=== PATIENT | female | born 1945 | race Caucasian/White ===

== ENCOUNTER 2017-10-26 14:51 | Emergency (ER) | payer MEDICARE, OTHER ==
[~2017-10-26] VITALS: Ht 157.5 cm; Wt 56.2 kg
[~2017-10-26 14:51] MED LIST: ATOR40TA PO; ATOR80TA PO; BUPR300T2 PO; ESCT10T PO; EZET10TA5 PO; FLC1T PO; LANS15CA PO; LVT.15T PO; MTF500T PO; MTX2.5T PO; MUPI22OI; OXYC-12 PO; VALS1TAB48 PO
--- OUTSIDE RECORDS SUMMARY | 2017-10-26 15:00 | XMS REPORT | Continuity of Care Document ---
Author Author [facility] Organization [facility] Address Unknown Phone Unavailable Allergies There is no data. Medications There is no data. Problems There is no data. Procedures There is no data. Results There is no data. Encounters ACCT No. Visit Date/Time Discharge Status Pt. Type Provider Facility Loc./Unit Complaint [id number] 06/15/2013 13:41:00 06/15/2013 14:40:00 DIS Outpatient [id number] 10/26/2017 14:53:00 ACT Emergency FABIOLA KAPLAN DO [facility] ER FALL/R FOOT INJ
--- NOTE | 2017-10-26 15:34 | Diagnostic Imaging Report ---
Indication: Right foot injury from falling on the ice. Findings: Three views of the right foot show a small cortical avulsion fracture off the distal dorsal aspect of the talus. This fragment measures 8 mm in diameter and 3 mm in thickness. Remainder of the foot is unremarkable. Impression: Small avulsion fracture of the distal dorsal aspect of the talus. Dictated by: Dictated on workstation # [id number]
--- NOTE | 2017-10-26 15:34 | Diagnostic Imaging Report ---
Indication: Right ankle injury from slipping on ice. Findings: Three views of the right ankle show a small cortical avulsion fracture off of the dorsal distal aspect of the talus. Ankle mortise is preserved. The tibia and fibular are unremarkable. Impression: Fracture of the distal dorsal talus. Ankle otherwise unremarkable. Dictated by: Dictated on workstation # [id number]
[2017-10-26] MEDS ORDERED: TRAM-42 PO (15:43)
[2017-10-26] MEDS ORDERED: MELO-170 PO (15:43)
--- NOTE | 2017-10-26 15:43 | ED Lower Extremity ---
General Chief Complaint: Lower Extremity Stated Complaint: FALL/R FOOT INJ Nursing Triage Note: PT STATES FELL DOWN A COUPLE STEPS STATES SLIPPED CO OF R ANKLE PAIN, SWELLING AND BRUISING NOTED, STATES UNABLE TO BEAR WT ON R FOOT Nursing Sepsis Screen: No Definite Risk Source: patient History of Present Illness Date Seen by Provider: Oct 26, 2017 Time Seen by Provider: 15:13 Initial Comments C/O RIGHT ANKLE / FOOT PAIN STATES SHE FELL DOWN A COUPLE OF STEPS TODAY, INJURING RIGHT FOOT/ANKLE DENIES ANY OTHER INJURIES OR PAIN NO PARESTHESIAS OR MOTOR DEFICITS STATES SHE CANNOT BEAR WEIGHT ON RIGHT FOOT PCP: [facility] Allergies and Home Medications Allergies Coded Allergies: No Known Drug Allergies (Unverified , 10/11/11) Home Medications Atorvastatin Calcium 40 Mg Tablet, 1 EACH PO HS, (Reported) Bupropion Hcl 300 Mg Tab.sr.24h, 300 MG PO HS, (Reported) Escitalopram Oxalate 10 Mg Tablet, 1 EACH PO DAILY, (Reported) Ezetimibe 10 Mg Tablet, 10 MG PO HS, (Reported) Folic Acid 1 Mg Tab, 1 EACH PO DAILY, (Reported) Hctz/Valsartan 1 Tab Tablet, 1 EACH PO DAILY, (Reported) Lansoprazole 15 Mg Capsule.dr, 15 MG PO DAILY, (Reported) Levothyroxine Sodium 150 Mcg Tablet, 75 MCG PO DAILY, (Reported) Meloxicam 7.5 Mg Tablet, 7.5 MG PO DAILY, #10 Prescribed by: FABIOLA KAPLAN on 10/26/17 1543 Metformin Hcl 500 Mg Tablet, 1 EACH PO BID WITH MEALS, (Reported) Methotrexate 2.5 Mg Tab, 2.5 MG PO Q7D, (Reported) Oxycodone Hcl/Acetaminophen 1 Each Tablet, 1-2 EACH PO Q4H PRN, (Reported) Tramadol HCl 50 Mg Tablet, 50 MG PO Q4H, #20 Prescribed by: FABIOLA KAPLAN on 10/26/17 1543 Constitutional: no symptoms reported Musculoskeletal: see HPI Skin: no symptoms reported Psychiatric/Neurological: No Symptoms Reported Past Sffwjgp-Yvhoqs-Mhcbda Hx Patient Social History Alcohol Use: Denies Use Recreational Drug Use: No Smoking Status: Current Everyday Smoker (1 1/2 PPD) Type Used: Cigarettes (1 /2 PPD) Recent Foreign Travel: No Contact w/Someone Who Travel: No Recent Infectious Disease Expo: No Recent Hopitalizations: No Physical Abuse: No Sexual Abuse: No Immunizations Up To Date Date of Pneumonia Vaccine: Jun 21, 2012 Date of Influenza Vaccine: Jun 21, 2012 Surgeries History of Surgeries: Yes (LUMBAR SPINE SURGERY--DR. 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 History: Hysterectomy, Menopausal Genitourinary History of Genitourinary Disor: No Gastrointestinal History of Gastrointestinal Di: Yes (S/P JAMEL) Gastrointestinal Disorders: Pancreatitis, Gall Bladder Disease Musculoskeletal History of Musculoskeletal Dis: Yes Musculoskeletal Disorders: Degenerate Disk Disease, Rheumatoid Arthritis, Chronic Back Pain Endocrine History of Endocrine Disorders: Yes Endocrine Disorders: Hypothyroidsim, Diabetes, Non-Insulin dep HEENT History of HEENT Disorders: No Cancer History of Cancer: No Psychosocial History of Psychiatric Problem: Yes Behavioral Health Disorders: Anxiety, Depression Suicide Risk Score: 0 Integumentary History of Skin or Integumenta: Yes (MRSA + NASAL SWAB) Blood Transfusions History of Blood Disorders: No Physical Exam Vital Signs Vital Sign - Last 12Hours 10/26/17 15:00 Temp 97.4 Pulse 64 Resp 18 B/P (MAP) 131/56 (81) Pulse Ox 98 Capillary Refill : Less Than 3 Seconds General Appearance: WD/WN, no apparent distress Hips: bilateral hip normal inspection Legs: bilateral leg normal inspection Knees: bilateral knee normal inspection Ankles: left ankle normal inspection, right ankle bone tenderness, right ankle ecchymosis, right ankle limited range of motion, right ankle pain, right ankle soft tissue tenderness, right ankle swelling, right ankle other (MODERATE SWELLING, BRUISING AND TENDERNESS TO RIGHT LATERAL MALLEOLUS, EXTENDING DOWN TO LATERAL METARARSAL AREA. 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, no motor/sensory deficits, alert, normal mood/affect, oriented x 3 Splinting and Joint Reduction : Jd wrap: Yes Immobilizers: Step Light Walker s/m/lg Progress/Results/Core Measures Results/Orders My Orders Orders - FABIOLA KAPLAN DO Foot, Right, 3 View (10/26/17 15:15) Ankle, Right, 3 Views (10/26/17 15:15) Jd Bandage (10/26/17 15:38) Steplite (10/26/17 15:38) Vital Signs/I&O Vital Sign - Last 12Hours 10/26/17 10/26/17 15:00 16:09 Temp 97.4 97.4 Pulse 64 64 Resp 18 18 B/P (MAP) 131/56 (81) Pulse Ox 98 98 Blood Pressure Mean: 81 Diagnostic Imaging Comments XRAYS RIGHT FOOT AND ANKLE--AVULSION FX OF TALUS. SOFT TISSUE SWELLING, PER RADIOLOGIST REPORT @ 1535 Reviewed: Reviewed by Me Departure Impression Impression: Primary Impression: Avulsion fracture of right talus Additional Impression: Right ankle sprain Disposition: HOME, SELF-CARE Condition: Stable Departure-Patient Inst. Referrals: NO,LOCAL PHYSICIAN (PCP) Primary Care Physician [facility] 4 STATES Patient Instructions: Ankle Fracture (DC), Ankle Sprain (DC) Add. Discharge Instructions: JD WRAP AND WALKING BOOT AT ALL TIMES ICE TO AREA AT 20 MINUTE INTERVALS, AND ELEVATE FOOT MUCH POSSIBLE FOLLOW UP WITH [facility] 4 STATES IN 5-7 DAYS FOR FURTHER CARE--CALL TODAY FOR APPOINTMENT All discharge instructions reviewed with patient and/or family. Voiced understanding. Scripts Tramadol HCl (Ultram) 50 Mg Tablet 50 MG PO Q4H, #20 TAB Prov: FABIOLA KAPLAN DO 10/26/17 Meloxicam (Mobic) 7.5 Mg Tablet 7.5 MG PO DAILY, #10 TAB Prov: FABIOLA KAPLAN DO 10/26/17 FABIOLA KAPLAN DO Oct 26, 2017 15:43
[2017-10-26 16:09] VITALS: BP 131/56
== END 2017-10-26 16:27 | disposition home or self-care (01) ==
LOC: EDUNIT# 14:51 → ER 14:53
DX: S92.151A Displaced avulsion fracture (chip fracture) of right talus, initial encounter for closed fracture (principal); F41.9 Anxiety disorder, unspecified; F32.9 Major depressive disorder, single episode, unspecified; G47.30 Sleep apnea, unspecified; E03.9 Hypothyroidism, unspecified; E11.9 Type 2 diabetes mellitus without complications; E78.00 Pure hypercholesterolemia, unspecified; I10 Essential (primary) hypertension; F17.210 Nicotine dependence, cigarettes, uncomplicated; Z87.19 Personal history of other diseases of the digestive system; Z90.49 Acquired absence of other specified parts of digestive tract; Z90.710 Acquired absence of both cervix and uterus; Z79.84 Long term (current) use of oral hypoglycemic drugs; W10.9XXA Fall (on) (from) unspecified stairs and steps, initial encounter
CPT/HCPCS: 73610; 73630; 99283

== ENCOUNTER 2018-02-08 20:48 | Emergency (ER) | payer MEDICARE, OTHER ==
[~2018-02-08] VITALS: Ht 157.5 cm; Wt 56.2 kg
[~2018-02-08 20:48] MED LIST changes: +MELO-170 PO; +TRAM-42 PO
--- NOTE | 2018-02-08 21:29 | Diagnostic Imaging Report ---
INDICATION: Left knee pain COMPARISON: None FINDINGS: Three views of the left knee demonstrate minimal tricompartment degenerative joint disease. There is a small suprapatellar joint effusion. There is no fracture or dislocation. IMPRESSION: Degenerative joint disease without fracture. Dictated by: Dictated on workstation # [id number]
--- NOTE | 2018-02-08 21:30 | Diagnostic Imaging Report ---
INDICATION: Left tibia-fibula injury, pain COMPARISON: None FINDINGS: Multiple views of the left tibia and fibula demonstrate a tiny chronic appearing chip fracture off of the medial malleolus but otherwise, no obvious acute fracture seen. Articular surfaces are normal. IMPRESSION: No obvious acute fracture or dislocation Dictated by: Dictated on workstation # [id number]
--- NOTE | 2018-02-08 21:41 | ED Lower Extremity ---
General Chief Complaint: Lower Extremity Stated Complaint: LEFT KNEE PAIN Nursing Triage Note: c/o L knee pain after feeling a pop earlier. patient denies taking medication for pain and is unable to to bear weight on leg Nursing Sepsis Screen: No Definite Risk Source: patient Exam Limitations: no limitations History of Present Illness Date Seen by Provider: February 08, 2018 Time Seen by Provider: 20:59 Initial Comments PT ARRIVES VIA POV FROM HOME STATES SHE WAS WALKING OUT THE DOOR AND HER LEFT KNEE POPPED WHEN SHE STEPPED DOWN ON IT. STATES SHE DID NOT TWIST HER KNEE AND DID NOT FALL DOWN OCCURRED TONIGHT AROUND 1800 STATES SHE HAS NOT BEEN ABLE TO BEAR WEIGHT ON THIS LEG SINCE IT HAPPENED STATES SHE HAS SHARP SHOOTING PAINS IN HER KNEE, MOSTLY THE LATERAL ASPECT AND HAS OCCASIONAL SLIGHT TINGLING IN HER TOES. HAS NOT TAKEN ANYTHING FOR PAIN, OR PUT ICE ON IT --PT STATES SHE HAS BOTH HYDROCODONE AND PRESCRIPTION STRENGTH IBUPROFEN AT HOME. PT ALSO STATES SHE HAS A WALKER AT HOME BUT HAS NOT USED IT NO PRIOR PROBLEMS WITH THIS KNEE, BUT HAS HAD RIGHT KNEE SURGERY BY DR. GUERRA AND BACK SURGERY BY DR. RED AT [facility] 4 STATES PCP: KADEEM PENG Allergies and Home Medications Allergies Coded Allergies: No Known Drug Allergies (Unverified , 10/11/11) Home Medications Atorvastatin Calcium 40 Mg Tablet, 1 EACH PO HS, (Reported) Bupropion Hcl 300 Mg Tab.sr.24h, 300 MG PO HS, (Reported) Escitalopram Oxalate 10 Mg Tablet, 1 EACH PO DAILY, (Reported) Ezetimibe 10 Mg Tablet, 10 MG PO HS, (Reported) Folic Acid 1 Mg Tab, 1 EACH PO DAILY, (Reported) Hctz/Valsartan 1 Tab Tablet, 1 EACH PO DAILY, (Reported) Lansoprazole 15 Mg Capsule.dr, 15 MG PO DAILY, (Reported) Levothyroxine Sodium 150 Mcg Tablet, 75 MCG PO DAILY, (Reported) Meloxicam 7.5 Mg Tablet, 7.5 MG PO DAILY Prescribed by: FABIOLA KAPLAN on 10/26/17 1543 Metformin Hcl 500 Mg Tablet, 1 EACH PO BID WITH MEALS, (Reported) Methotrexate 2.5 Mg Tab, 2.5 MG PO Q7D, (Reported) Oxycodone Hcl/Acetaminophen 1 Each Tablet, 1-2 EACH PO Q4H PRN, (Reported) Tramadol HCl 50 Mg Tablet, 50 MG PO Q4H Prescribed by: FABIOLA KAPLAN on 10/26/17 1543 Patient Home Medication List Home Medication List Reviewed: Yes Constitutional: no symptoms reported Musculoskeletal: see HPI Skin: no symptoms reported Psychiatric/Neurological: See HPI Past Mpeumgl-Pubeza-Oxvhmr Hx Patient Social History Alcohol Use: Denies Use Recreational Drug Use: No Smoking Status: Current Everyday Smoker Type Used: Cigarettes Recent Foreign Travel: No Contact w/Someone Who Travel: No Recent Infectious Disease Expo: No Recent Hopitalizations: No Physical Abuse: No Sexual Abuse: No Immunizations Up To Date Date of Pneumonia Vaccine: Jun 21, 2012 Date of Influenza Vaccine: Jun 21, 2012 Past Medical History Surgeries: Yes (LUMBAR SPINE SURGERY--DR. RED / [facility] 4 STATES; RIGHT KNEE SURGERY--DR. 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 Genitourinary: No Gastrointestinal: Yes (S/P JAMEL) Pancreatitis, Gall Bladder Disease Musculoskeletal: Yes (S/P RIGHT KNEE SURGERY AND BACK SURGERY) Degenerate Disk Disease, Rheumatoid Arthritis, Chronic Back Pain Endocrine: Yes Hypothyroidsim, Diabetes, Non-Insulin dep HEENT: No Cancer: No Psychosocial: Yes Anxiety, Depression Nursing Suicide Risk Score: 0 Integumentary: Yes (MRSA + NASAL SWAB) Blood Disorders: No Physical Exam Vital Signs Vital Signs - First Documented 02/08/18 02/08/18 20:52 21:57 Temp 98.2 Pulse 73 Resp 18 B/P (MAP) 143/67 (92) Pulse Ox 95 O2 Delivery Room Air Capillary Refill : Less Than 3 Seconds General Appearance: WD/WN, no apparent distress, thin Hips: bilateral hip non-tender, bilateral hip normal inspection, bilateral hip normal range of motion, bilateral hip no evidence of injury Legs: bilateral leg non-tender, bilateral leg normal inspection, bilateral leg normal range of motion, bilateral leg no evidence of injury Knees: right knee normal inspection; left knee bone tenderness, left knee pain , left knee other (LIMITED ROM, VERY SLIGHT SWELLING TO KNEE, NO GROSS LIGAMENT LAXITY, BUT EXAM IS VERY LIMITED DUE TO PAIN. NO BRUISING. DISTAL MOTOR/SENSORY/ VASCULAR INTACT. 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, no motor/sensory deficits, alert, normal mood/affect, oriented x 3 Skin: normal color, warm/dry Procedures/Interventions Splinting and Joint Reduction : Jd wrap: Yes Immobilizers: 19 inch Knee Ordered: Other (HAS WALKER AT HOME) Progress/Results/Core Measures Results/Orders My Orders Orders - FABIOLA KAPLAN DO Tibia/Fibula, Left, 2 Views (02/08/18 21:03) Knee, Left, 3 Views (02/08/18 21:03) Jd Bandage (02/08/18 21:31) Knee Immobilizer (02/08/18 21:31) Ketorolac Injection (Toradol Injection) (02/08/18 21:45) Hydrocodone/Apap 5/325 Tablet (Lortab 5 (02/08/18 21:45) Im/Sub-Q Injection Non-Ab Ed (02/08/18 ) Vital Signs/I&O 02/08/18 02/08/18 20:52 21:57 Temp 98.2 98.2 Pulse 73 71 Resp 18 18 B/P (MAP) 143/67 (92) 137/63 (92) Pulse Ox 95 96 O2 Delivery Room Air Blood Pressure Mean: 92 Diagnostic Imaging Comments XRAYS RIGHT KNEE--NO ACUTE PROCESS, PER RADIOLOGIST REPORT @ 2131 Reviewed: Reviewed by Me Departure Impression Primary Impression: Left knee sprain Disposition: HOME, SELF-CARE Condition: Stable Departure-Patient Inst. Referrals: FRANCESCO GUERRA MD NO,LOCAL PHYSICIAN (PCP) Primary Care Physician Patient Instructions: How to Use an Elastic Bandage, Knee Immobilizer (DC), Knee Sprain (DC) Add. Discharge Instructions: JD WRAP, KNEE IMMOBILIZER AND WALKER AT ALL TIMES ICE TO AREA AT 20 MINUTE INTERVALS ELEVATE LEG MUCH POSSIBLE TAKE YOUR IBUPROFEN AND HYDROCODONE NEEDED FOR PAIN FOLLOW UP WITH DR. GUERRA IN 3-5 DAYS FOR FURTHER CARE All discharge instructions reviewed with patient and/or family. Voiced understanding. FABIOLA KAPLAN DO February 08, 2018 21:41
[2018-02-08] MEDS ORDERED: KETOROLAC 60 MG/2 ML VIAL IM ONE (21:45)
[2018-02-08] MEDS ORDERED: HYDROcodone/APAP 5 MG/325 MG (LORTAB) TAB PO ONE (21:45)
[2018-02-08 21:57] VITALS: BP 137/63
--- OUTSIDE RECORDS SUMMARY | 2018-02-09 09:49 | XMS REPORT | Continuity of Care Document ---
Author Author [facility] Organization [facility] Address Unknown Phone Unavailable Allergies Active Description Code Type Severity Reaction Onset Reported/Identified Relationship to Patient Clinical Status Yes PAXIL MODERATE OTHER Yes No Known Drug Allergies [id number] Drug Allergy Unknown N/A 10/11/2011 Medications There is no data. Problems Date Dx Coded Attending Type Code Diagnosis Diagnosed By 10/26/2017 FABIOLA KAPLAN DO, Ot E03.9 HYPOTHYROIDISM, UNSPECIFIED 10/26/2017 FABIOLA KAPLAN DO Ot E11.9 TYPE 2 DIABETES MELLITUS WITHOUT COMPLIC 10/26/2017 FABIOLA KAPLAN DO Ot E78.00 PURE HYPERCHOLESTEROLEMIA, UNSPECIFIED 10/26/2017 FABIOLA KAPLAN DO Ot F17.210 NICOTINE DEPENDENCE, CIGARETTES, UNCOMPL 10/26/2017 FABIOLA KAPLAN DO Ot F32.9 MAJOR DEPRESSIVE DISORDER, SINGLE EPISOD 10/26/2017 FABIOLA KAPLAN DO Ot F41.9 ANXIETY DISORDER, UNSPECIFIED 10/26/2017 FABIOLA KAPLAN DO Ot G47.30 SLEEP APNEA, UNSPECIFIED 10/26/2017 SEKOU KAPLAN DOA K Ot I10 ESSENTIAL (PRIMARY) HYPERTENSION 10/26/2017 FABIOLA KAPLAN DO Ot M25.571 PAIN IN RIGHT ANKLE AND JOINTS OF RIGHT 10/26/2017 FABIOLA KAPLAN DO Ot S92.151A DISPL AVULSION FRACTURE (CHIP FRACTURE) 10/26/2017 FABIOLA KAPLAN DO Ot W10.9XXA FALL (ON) (FROM) UNSPECIFIED STAIRS AND 10/26/2017 FABIOLA KAPLAN DO Ot Z79.84 [facility] (CURRENT) USE OF ORAL HYPOGLYC 10/26/2017 FABIOLA KAPLAN DO Ot Z87.19 PERSONAL HISTORY OF OTHER DISEASES OF TH 10/26/2017 FABIOLA KAPLAN DO Ot Z90.49 ACQUIRED ABSENCE OF OTHER SPECIFIED PART 10/26/2017 FABIOLA KAPLAN DO Ot Z90.710 ACQUIRED ABSENCE OF BOTH CERVIX AND UTER 10/28/2017 [facility] FABIOLA Malhotra Ot E03.9 HYPOTHYROIDISM, UNSPECIFIED 10/28/2017 [facility] FABIOLA Malhotra Ot E11.9 TYPE 2 DIABETES MELLITUS WITHOUT COMPLIC 10/28/2017 [facility] FABIOLA Malhotra Ot E78.00 PURE HYPERCHOLESTEROLEMIA, UNSPECIFIED 10/28/2017 [facility] FABIOLA Malhotra Ot F17.210 NICOTINE DEPENDENCE, CIGARETTES, UNCOMPL 10/28/2017 [facility] FABIOLA Malhotra Ot F32.9 MAJOR DEPRESSIVE DISORDER, SINGLE EPISOD 10/28/2017 [facility] FABIOLA Malhotra Ot F41.9 ANXIETY DISORDER, UNSPECIFIED 10/28/2017 [facility] FABIOLA Malhotra Ot G47.30 SLEEP APNEA, UNSPECIFIED 10/28/2017 EUSE[facility] DO FABIOLA Malhotra Ot I10 ESSENTIAL (PRIMARY) HYPERTENSION 10/28/2017 [facility] FABIOLA Malhotra Ot M25.571 PAIN IN RIGHT ANKLE AND JOINTS OF RIGHT 10/28/2017 EUSEBIO DO FABIOLA Malhotra Ot S92.151A DISPL AVULSION FRACTURE (CHIP FRACTURE) 10/28/2017 [facility] FABIOLA Malhotra Ot W10.9XXA FALL (ON) (FROM) UNSPECIFIED STAIRS AND 10/28/2017 [facility] FABIOLA Malhotra Ot Z79.84 [facility] (CURRENT) USE OF ORAL HYPOGLYC 10/28/2017 EUSE[facility] DO FABIOLA Malhotra Ot Z87.19 PERSONAL HISTORY OF OTHER DISEASES OF TH 10/28/2017 [facility] FABIOLA Malhotra Ot Z90.49 ACQUIRED ABSENCE OF OTHER SPECIFIED PART 10/28/2017 EUSE[facility] DO FABIOLA Malhotra Ot Z90.710 ACQUIRED ABSENCE OF BOTH CERVIX AND UTER Procedures There is no data. Results Test Result Range Ferritin - 10/22/16 19:16 Ferritin 301.44 ng/mL 4.63-204.00 Thyroid Stimulating Hormone - 10/22/16 19:16 TSH 0.79 mIU/mL 0.32-5.00 Thyroid Stimulating Hormone - 08/28/17 12:50 TSH 0.42 mIU/mL 0.32-5.00 Surgical Pathology - 10/30/17 13:44 Surg Path Sent to [facility] Encounters ACCT No. Visit Date/Time Discharge Status Pt. Type Provider Facility Loc./Unit Complaint [id number] 10/26/2017 14:53:00 10/26/2017 16:27:00 DIS Emergency FABIOLA KAPLAN DO [facility] ER FALL/R FOOT INJ [id number] 06/15/2013 13:41:00 06/15/2013 14:40:00 DIS Outpatient [id number] 10/30/2017 15:44:00 10/30/2017 23:59:00 DIS Outpatient Mayo Pineda [id number] 08/28/2017 12:50:00 08/28/2017 23:59:00 DIS Outpatient Yaima Lal [id number] 10/23/2016 07:31:00 10/23/2016 07:31:00 CAN Outpatient David Manley [id number] 10/22/2016 19:13:00 10/22/2016 23:59:00 DIS Outpatient David Manley
== END 2018-02-08 21:57 | disposition home or self-care (01) ==
LOC: ER 20:48
DX: S83.92XA Sprain of unspecified site of left knee, initial encounter (principal); G47.30 Sleep apnea, unspecified; E78.00 Pure hypercholesterolemia, unspecified; I10 Essential (primary) hypertension; E03.9 Hypothyroidism, unspecified; E11.9 Type 2 diabetes mellitus without complications; F41.9 Anxiety disorder, unspecified; F32.9 Major depressive disorder, single episode, unspecified; Z90.710 Acquired absence of both cervix and uterus; Z90.49 Acquired absence of other specified parts of digestive tract; Z87.19 Personal history of other diseases of the digestive system; Z79.84 Long term (current) use of oral hypoglycemic drugs; Z98.890 Other specified postprocedural states; X50.0XXA Overexertion from strenuous movement or load, initial encounter
CPT/HCPCS: 73562; 73590; 96372

== ENCOUNTER 2019-02-18 22:32 | Observation (INO) | payer MEDICARE, OTHER ==
[~2019-02-18] VITALS: Ht 157.5 cm; Wt 65.8 kg
--- OUTSIDE RECORDS SUMMARY | 2019-02-18 22:37 | XMS REPORT | Continuity of Care Document ---
Author Author [facility] Organization [facility] Address Unknown Phone Unavailable Care Team Providers Care Medical Affairs Specialist Name Role Phone JONE HERNANDEZ MD PP Insurance Providers Payer Name Policy Number Subscriber Name Relationship [employer] Benefits [id number] Chema Corrales Self / Same As Patient Wps Medicare [id number] Chema Corrales 01 Self / Same As Patient Advance Directives Directive Response Recorded Date Advance Directives N 09/03/12 3:03pm Health Care Power of Chemical Tester N 10/12/11 12:00am Organ Donor N 10/12/11 12:00am Problems No Known Problems or Medical conditions. Family History History Response Recorded Date/Time Hx Family Cancer N 10/11/11 11:14pm Hx Family Cardiac Disorders Y 10/11/11 11:14pm Hx Family Hypertension Y 10/11/11 11:14pm Hx Family Myocardial Infarction Y 10/11/11 11:14pm Allergies, Adverse Reactions, Alerts Allergen Type Severity Reaction Last Updated No Known Drug Allergies 10/11/11 Medications Medication Dose Units Route Sig Qty Days Oxycodone Hcl/Acetaminophen (Percocet 5-325 Mg Tablet) 1 - 2 Each PO Q4H PRN Ezetimibe (Zetia) 10 Mg PO HS Atorvastatin Calcium (Lipitor 40MG) 1 Each PO HS Folic Acid (Folic Acid Tab) 1 Each PO DAILY Bupropion Hcl (Budeprion Xl) 300 Mg PO HS Escitalopram Oxalate (Lexapro) 1 Each PO DAILY Lansoprazole (Prevacid) 15 Mg PO DAILY Methotrexate 2.5 Mg PO Q7D HCTZ/Valsartan (Diovan Hct 80-12.5 Mg Tablet) 1 Each PO DAILY Levothyroxine Sodium (Levothyroxine 150 Mcg Tab) 75 Mcg PO DAILY Metformin HCl (Metformin 500 Mg) 1 Each PO BID WITH MEALS Mupirocin (Bactroban) 22 Gm NA TID Immunizations Name Given Type Date of Pneumonia Vaccine 06/21/12 H Date of Influenza Vaccine 06/21/12 H Response Recorded Date/Time Status not known Unknown Results Test Date Result Interp. Ref. Range Alanine Aminotransferase (ALT/SGPT) October 15, 2011 5:21am 284 U/L H 30-65 Albumin October 15, 2011 5:21am 2.9 G/DL L 3.4-5.0 Alkaline Phosphatase October 15, 2011 5:21am 287 U/L H 50-136 Amylase Level October 14, 2011 5:44am 43 U/L N 25-115 Aspartate Amino Transf (AST/SGOT) October 15, 2011 5:21am 242 U/L H 15-37 BUN/Creatinine Ratio October 15, 2011 5:21am 6 - Blood Urea Nitrogen October 15, 2011 5:21am 7 MG/DL N 7-18 Calcium Level October 15, 2011 5:21am 7.8 MG/DL L 8.5-10.1 Carbon Dioxide Level October 15, 2011 5:21am 27 MMOL/L N 21-32 Chloride Level October 15, 2011 5:21am 107 MMOL/L N 101-110 Creatinine October 15, 2011 5:21am 1.2 MG/DL N 0.6-1.3 Direct Bilirubin October 11, 2011 3:40pm 0.1 MG/DL N 0.0-0.30 Glucose Level October 15, 2011 5:21am 108 MG/DL H 74-106 Hematocrit October 15, 2011 5:21am 30 % L 35-52 Hemoglobin October 15, 2011 5:21am 9.8 G/DL L 11.5-16.0 Indirect Bilirubin October 11, 2011 3:40pm 0.3 MG/DL - Lipase October 15, 2011 5:21am 73 U/L N 73-393 Mean Corpuscular Hemoglobin October 15, 2011 5:21am 32 PG N 25-34 Mean Corpuscular Hemoglobin Concent October 15, 2011 5:21am 33 G/DL N 32-36 Mean Corpuscular Volume October 15, 2011 5:21am 97 FL N 80-99 Mean Platelet Volume October 15, 2011 5:21am 10.3 FL N 7.4-10.4 Platelet Count October 15, 2011 5:21am 194 10^3/uL N 130-400 Potassium Level October 15, 2011 5:21am 4.5 MMOL/L N 3.6-5.0 Red Blood Count October 15, 2011 5:21am 3.07 10^6/uL L 4.35-5.85 Red Cell Distribution Width October 15, 2011 5:21am 15.6 % H 10.0-14.5 Sodium Level October 15, 2011 5:21am 140 MMOL/L N 135-145 Total Bilirubin October 15, 2011 5:21am 0.6 MG/DL N 0.0-1.0 Total Protein October 15, 2011 5:21am 5.9 G/DL L 6.4-8.2 Urine Bacteria October 11, 2011 5:00pm TRACE - Urine Bilirubin October 11, 2011 5:00pm NEGATIVE - Urine Casts October 11, 2011 5:00pm NONE - Urine Clarity October 11, 2011 5:00pm CLEAR - Urine Color October 11, 2011 5:00pm YELLOW - Urine Crystals October 11, 2011 5:00pm NONE - Urine Culture Indicated October 11, 2011 5:00pm NO - Urine Glucose (UA) October 11, 2011 5:00pm 1+ H - Urine Ketones October 11, 2011 5:00pm NEGATIVE - Urine Leukocyte Esterase October 11, 2011 5:00pm TRACE H - Urine Mucus October 11, 2011 5:00pm NEGATIVE - Urine Nitrite October 11, 2011 5:00pm NEGATIVE - Urine Protein October 11, 2011 5:00pm NEGATIVE - Urine RBC October 11, 2011 5:00pm RARE /HPF - Urine Specific [place] October 11, 2011 5:00pm 1.015 L - Urine Squamous Epithelial Cells October 11, 2011 5:00pm 2-5 - Urine Urobilinogen October 11, 2011 5:00pm NORMAL MG/DL - Urine WBC October 11, 2011 5:00pm 0-2 /HPF - Urine pH October 11, 2011 5:00pm 6.0 - White Blood Count October 15, 2011 5:21am 7.7 10^3/uL N 4.3-11.0 Glucometer October 15, 2011 5:50am 122 MG/DL H 70-110 Estimat Glomerular Filtration Rate October 11, 2011 3:40pm 41 - Urine RBC (Auto) October 11, 2011 5:00pm NEGATIVE - Procedures Procedure Code Date LAPAROSCOPIC CHOLECYSTECTOMY 51.23 10/13/11 MRSA Screen 10/13/11 Encounters Encounter Location Date/Time Departed Emergency Room [facility] 09/03/12 2:55pm Discharged Inpatient [facility] 10/11/11 8:00pm
[2019-02-18] MEDS ORDERED: methylPREDNISolone 125 MG (Solu-MEDROL) VIAL IVP ONE (23:00)
[2019-02-18] MEDS ORDERED: FAMOTIDINE 20MG/2ML IV (PEPCID) IVP ONE (23:00)
[2019-02-18] MEDS ORDERED: EPINEPHrine INJECTION 1 MG/ML AMP IM ONE (23:00)
[2019-02-18] MEDS ORDERED: diphenhydrAMINE 50 MG/ML INJ (BENADRYL) IVP ONE (23:00)
[2019-02-18 23:41] LABS: BASOPHILS # (AUTO) 0.1 10^3/uL (0.0-0.1); BASOPHILS % (AUTO) 1 % (0-10); EOSINOPHILS # (AUTO) 0.4 10^3/uL (0.0-0.3); EOSINOPHILS % (AUTO) 3 % (0-10); HEMATOCRIT 32 % (35-52); HEMOGLOBIN 10.6 G/DL (11.5-16.0); LYMPHOCYTES # (AUTO) 2.3 X 10^3 (1.0-4.0); LYMPHOCYTES % (AUTO) 17 % (12-44); MEAN CORPUSCULAR HEMOGLOBIN 27 PG (25-34); MEAN CORPUSCULAR HGB CONC 33 G/DL (32-36); MEAN CORPUSCULAR VOLUME 82 FL (80-99); MEAN PLATELET VOLUME 11.2 FL (7.4-10.4); MONOCYTES # (AUTO) 0.7 X 10^3 (0.0-1.0); MONOCYTES % (AUTO) 6 % (0-12); NEUTROPHILS # (AUTO) 9.6 X 10^3 (1.8-7.8); NEUTROPHILS % (AUTO) 73 % (42-75); PLATELET COUNT 338 10^3/uL (130-400); RED CELL DISTRIBUTION WIDTH 17.7 % (10.0-14.5); WHITE BLOOD COUNT 13.1 10^3/uL (4.3-11.0)
[2019-02-18 23:59] LABS: ALBUMIN 4.2 GM/DL (3.2-4.5); BILIRUBIN,TOTAL 0.2 MG/DL (0.1-1.0); CALCIUM 9.7 MG/DL (8.5-10.1); CREATININE SERUM 2.15 MG/DL (0.60-1.30); POTASSIUM 4.2 MMOL/L (3.6-5.0); TOTAL PROTEIN 7.6 GM/DL (6.4-8.2)
[2019-02-19] VITALS (13 sets, daily range): BP systolic 99–133; BP diastolic 48–74
[2019-02-19] MEDS ORDERED: methylPREDNISolone 125 MG (Solu-MEDROL) VIAL IVP ONE (00:45)
[2019-02-19] MEDS ORDERED: diphenhydrAMINE 50 MG/ML INJ (BENADRYL) IVP ONE (00:45)
[2019-02-19] MEDS ORDERED: FAMOTIDINE 20MG/2ML IV (PEPCID) IVP ONE (00:45)
[2019-02-19] MEDS ORDERED: EPINEPHrine INJECTION 1 MG/ML AMP IM ONE (00:45)
[2019-02-19] MEDS ORDERED: EPINEPHrine INJECTION 1 MG/ML AMP IM PRN (05:00)
[2019-02-19] MEDS ORDERED: 1/2 NS IV SOLUTION 1,000 ML IV SCH (05:00)
[2019-02-19] MEDS: methylPREDNISolone 125 MG (Solu-MEDROL) VIAL IVP SCH ×2 (05:05→13:50)
[2019-02-19] MEDS: diphenhydrAMINE 50 MG/ML INJ (BENADRYL) IV SCH ×3 (05:06→13:50)
[2019-02-19] MEDS ORDERED: inSUlin ASPART (NovoLOG) 1 UNIT/0.01 ML (CHARGE PER UNIT) SC SCH (06:00)
--- NOTE | 2019-02-19 06:37 | ED EENT ---
History of Present Illness General Chief Complaint: Oral/Throat Problems Stated Complaint: ANGIOEDEMA OF TONGUE;ANGEL INHIBITOR USE Nursing Triage Note: Patient advises that she began experiencing the right side of her tongue swelling at approximately [id number]. She states that she took two benadryl at approximately 2100 without improvement. Source: patient History of Present Illness Date Seen by Provider: February 18, 2019 Time Seen by Provider: 22:52 Initial Comments PT ARRIVES VIA POV FROM HOME-DROVE SELF HERE PT STATES SHE BEGAN TO HAVE SWELLING OF MOSTLY THE RIGHT SIDE OF HER TONGUE AROUND 1830 TONIGHT SWELLING HAS PROGRESSED AND IS HAVING DIFFICULTY SWALLOWING LIQUIDS, INCLUDING SALIVA, AND HAVING DIFFICULTY TALKING NO DIFFICULTY BREATHING NO SWELLING ANYWHERE ELSE NO RASH OR ITCHING ANYWHERE PT HAD A SLIGHT SORE THROAT THIS AM NO FEVER NO KNOWN INJURY TO TONGUE OR MOUTH. NO RECENT ILLNESS, ETC. 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 PCP: KADEEM PENG Allergies and Home Medications Allergies Coded Allergies: No Known Drug Allergies (Unverified , 02/18/19) Home Medications Atorvastatin Calcium 40 Mg Tablet, 1 EACH PO HS, (Reported) Bupropion Hcl 300 Mg Tab.sr.24h, 300 MG PO HS, (Reported) Escitalopram Oxalate 10 Mg Tablet, 1 EACH PO DAILY, (Reported) Ezetimibe 10 Mg Tablet, 10 MG PO HS, (Reported) Folic Acid 1 Mg Tab, 1 EACH PO DAILY, (Reported) Hctz/Valsartan 1 Tab Tablet, 1 EACH PO DAILY, (Reported) Lansoprazole 15 Mg Capsule.dr, 15 MG PO DAILY, (Reported) Levothyroxine Sodium 150 Mcg Tablet, 75 MCG PO DAILY, (Reported) Meloxicam 7.5 Mg Tablet, 7.5 MG PO DAILY Prescribed by: FABIOLA KAPLAN on 10/26/17 1543 Metformin Hcl 500 Mg Tablet, 1 EACH PO BID WITH MEALS, (Reported) Methotrexate 2.5 Mg Tab, 2.5 MG PO Q7D, (Reported) Oxycodone Hcl/Acetaminophen 1 Each Tablet, 1-2 EACH PO Q4H PRN, (Reported) Tramadol HCl 50 Mg Tablet, 50 MG PO Q4H Prescribed by: FABIOLA KAPLAN on 10/26/17 1522 Patient Home Medication List Home Medication List Reviewed: Yes Review of Systems Review of Systems Constitutional: no symptoms reported; No chills, No diaphoresis, No fever Eyes: No Symptoms Reported Ears: No Symptoms Reported Nose: no symptoms reported Mouth: see HPI Throat: see HPI Respiratory: no symptoms reported; No cough, No short of breath, No wheezing Cardiovascular: no symptoms reported Gastrointestinal: no symptoms reported : No Musculoskeletal: no symptoms reported Skin: no symptoms reported Neurological: No Symptoms Reported Hematologic/Lymphatic: No Symptoms Reported Immunological/Allergic: no symptoms reported Past Hudxjmf-Kncudn-Mwmhjn Hx Patient Social History Alcohol Use: Rarely Uses Recreational Drug Use: No Smoking Status: Current Everyday Smoker (1 PPD) Type Used: Cigarettes (1 PPD) Recent Foreign Travel: No Contact w/Someone Who Travel: No Recent Infectious Disease Expo: No Recent Hopitalizations: No Immunizations Up To Date Date of Pneumonia Vaccine: Jun 21, 2012 Date of Influenza Vaccine: Jun 21, 2012 Past Medical History Surgeries: Yes (HYST/OVARIES INTACT; BACK SURGERY) Appendectomy, Gallbladder, Hysterectomy, Orthopedic Respiratory: Yes (CPAP AT HS) Sleep Apnea Cardiac: Yes High Cholesterol, Hypertension Neurological: No 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, 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 Genitourinary: Yes (NOT ON DIALYSIS AT THIS TIME 02/18/19) Renal Failure Gastrointestinal: Yes (S/P JAMEL) Gastroesophageal Reflux, Pancreatitis, Gall Bladder Disease Musculoskeletal: Yes (S/P RIGHT KNEE SURGERY AND BACK SURGERY) Degenerate Disk Disease, Rheumatoid Arthritis, Chronic Back Pain Endocrine: Yes Hypothyroidsim, Diabetes, Non-Insulin dep HEENT: No Cancer: No Psychosocial: Yes Anxiety, Depression Integumentary: Yes (MRSA + NASAL SWAB) Blood Disorders: No Physical Exam Vital Signs Vital Signs - First Documented 02/18/19 22:56 Temp 97.9 Pulse 70 Resp 14 B/P (MAP) 131/62 (85) Pulse Ox 98 O2 Delivery Room Air Height, Weight, BMI Height: 5'2.00" Weight: 145lbs. 0.0oz. 65.863064ld; 26.5 BMI Method:Stated General Appearance: WD/WN, no apparent distress, other (MUCH DIFFICULTY TALKING DUE TO SWELLING OF TONGUE, AND SOME DIFFICULTY SWALLOWING SALIVA. SPEECH VERY DIFFICULT TO UNDERSTAND ) Mouth/Throat: No excessive drooling; tongue swollen, voice changes, other (MARKED EDEMA TO TONGUE--MOSTLY RIGHT SIDE OF TONGUE--TONGUE TOUCHES ROOF OF MOUTH AND PT IS UNABLE TO CLOSE HER MOUTH DUE TO SWELLING--PT CAN CLOSE HER LIPS, BUT CANNOT ACTUALLY CLOSE MOUTH FULLY, VOICE VERY MUFFLED) Neck: non-tender, supple, normal inspection Cardiovascular: regular rate, rhythm, no murmur Respiratory: normal breath sounds Neurologic/Psychiatric: duster tender II-XII nml as tested, no motor/sensory deficits, alert, normal mood/affect, oriented x 3 Skin: normal color, warm/dry; No rash Progress/Results/Core Measures Results/Orders Lab Results Laboratory Tests Test 02/18/19 23:15 Range/Units White Blood Count 13.1 H 4.3-11.0 10^3/uL Red Blood Count 3.95 L 4.35-5.85 10^6/uL Hemoglobin 10.6 L 11.5-16.0 G/DL Hematocrit 32 L 35-52 % Mean Corpuscular Volume 82 80-99 FL Mean Corpuscular Hemoglobin 27 25-34 PG Mean Corpuscular Hemoglobin Concent 33 32-36 G/DL Red Cell Distribution Width 17.7 H 10.0-14.5 % Platelet Count 338 130-400 10^3/uL Mean Platelet Volume 11.2 H 7.4-10.4 FL Neutrophils (%) (Auto) 73 42-75 % Lymphocytes (%) (Auto) 17 12-44 % Monocytes (%) (Auto) 6 0-12 % Eosinophils (%) (Auto) 3 0-10 % Basophils (%) (Auto) 1 0-10 % Neutrophils # (Auto) 9.6 H 1.8-7.8 X 10^3 Lymphocytes # (Auto) 2.3 1.0-4.0 X 10^3 Monocytes # (Auto) 0.7 0.0-1.0 X 10^3 Eosinophils # (Auto) 0.4 H 0.0-0.3 10^3/uL Basophils # (Auto) 0.1 0.0-0.1 10^3/uL Sodium Level 140 135-145 MMOL/L Potassium Level 4.2 3.6-5.0 MMOL/L Chloride Level 106 98-107 MMOL/L Carbon Dioxide Level 20 L 21-32 MMOL/L Anion Gap 14 5-14 MMOL/L Blood Urea Nitrogen 28 H 7-18 MG/DL Creatinine 2.15 H 0.60-1.30 MG/DL Estimat Glomerular Filtration Rate 22 BUN/Creatinine Ratio 13 Glucose Level 129 H 70-105 MG/DL Calcium Level 9.7 8.5-10.1 MG/DL Corrected Calcium 9.5 8.5-10.1 MG/DL Total Bilirubin 0.2 0.1-1.0 MG/DL Aspartate Amino Transf (AST/SGOT) 17 5-34 U/L Alanine Aminotransferase (ALT/SGPT) 13 0-55 U/L Alkaline Phosphatase 168 H 40-136 U/L Total Protein 7.6 6.4-8.2 GM/DL Albumin 4.2 3.2-4.5 GM/DL My Orders Orders - FABIOLA KAPLAN DO Ed Iv/Invasive Line Start (02/18/19 22:59) Monitor-Rhythm Ecg Trace Only (02/18/19 22:59) Cbc With Automated Diff (02/18/19 22:59) Comprehensive Metabolic Panel (02/18/19 22:59) Diphenhydramine Injection (Benadryl Inje (02/18/19 23:00) Methylprednisolone Sod Succ (Solu-Medrol (02/18/19 23:00) Famotidine Injection (Pepcid Injection) (02/18/19 23:00) Epinephrine 1 Mg Injection (Adrenalin I (02/18/19 23:00) Diphenhydramine Injection (Benadryl Inje (02/19/19 00:45) Methylprednisolone Sod Succ (Solu-Medrol (02/19/19 00:45) Famotidine Injection (Pepcid Injection) (02/19/19 00:45) Epinephrine 1 Mg Injection (Adrenalin I (02/19/19 00:45) Medications Given in ED Current Medications Medications Dose Ordered Sig/Love Route Start Time Stop Time Status Last Admin Dose Admin Diphenhydramine HCl 25 mg ONCE ONCE IVP 02/19/19 00:45 02/19/19 00:46 DC 02/19/19 01:35 25 MG Diphenhydramine HCl 50 mg ONCE ONCE IVP 02/18/19 23:00 02/18/19 23:02 DC 02/18/19 23:15 50 MG Epinephrine HCl 0.3 mg ONCE ONCE IM 02/18/19 23:00 02/18/19 23:02 DC 02/18/19 23:16 0.3 MG Epinephrine HCl 0.3 mg ONCE ONCE IM 02/19/19 00:45 02/19/19 00:46 DC 02/19/19 01:36 0.3 MG Famotidine 40 mg ONCE ONCE IVP 02/18/19 23:00 02/18/19 23:02 DC 02/18/19 23:15 40 MG Famotidine 40 mg ONCE ONCE IVP 02/19/19 00:45 02/19/19 00:46 DC 02/19/19 01:35 40 MG Methylprednisolone Sodium Succinate 125 mg ONCE ONCE IVP 02/18/19 23:00 02/18/19 23:02 DC 02/18/19 23:15 125 MG Methylprednisolone Sodium Succinate 125 mg ONCE ONCE IVP 02/19/19 00:45 02/19/19 00:46 DC 02/19/19 01:35 125 MG Vital Signs/I&O 02/18/19 02/19/19 02/19/19 02/19/19 22:56 04:04 04:45 04:46 Temp 97.9 97.8 Pulse 70 78 75 Resp 14 14 B/P (MAP) 131/62 (85) 138/64 (88) Pulse Ox 98 98 O2 Delivery Room Air Room Air Room Air 02/19/19 02/19/19 02/19/19 02/19/19 05:00 05:00 05:15 05:30 Pulse 75 74 75 Resp 15 12 12 B/P (MAP) 119/48 (71) 116/52 (73) 113/51 (71) Pulse Ox 92 97 92 92 O2 Delivery Room Air Room Air Room Air 02/19/19 02/19/19 02/19/19 05:45 06:00 06:30 Pulse 75 73 73 Resp 12 12 13 B/P (MAP) 118/53 (74) 112/62 (79) 107/56 (73) Pulse Ox 90 91 93 O2 Delivery Room Air Room Air Room Air Blood Pressure Mean: 73 Progress Progress Note : Progress Note PT GIVEN SOLUMEDROL, BENADRYL, PEPCID, AND EPINEPHRINE X 2 EACH, WITH ONLY SLIGHT DECREASE IN SWELLING, AFTER A FEW HOURS OF OBSERVATION IN ER. O2 SATS REMAIN IN UPPER 90'S ON ROOM AIR. NO DETERIORATION IN PT'S CONDITION DURING ER STAY Departure Communication (Admissions) 217--CALLED DR. MORROW, HOSPITALIST. MESSAGE LEFT ON HOME PHONE [phone]--CALLED DR. MORROW, MESSAGE LEFT [phone]--CALLED DR. MORROW. MESSAGE LEFT. ALSO CALLED CELL PHONE, NO ANSWER AND UNABLE TO LEAVE MESSAGE [phone]--CALLED DR. MORROW, MESSAGE LEFT [phone]--CALLED DR. MORROW, MESSAGE LEFT. NO ANSWER ON CELL PHONE. [phone]--CALLED SHAGGER. SHE WILL ATTEMPT TO CONTACT DR. MORROW. [phone]--DR. MENDEZ CALLED. ACCEPTS PT FOR ADMIT. Impression Primary Impression: ANGIOEDEMA OF TONGUE Additional Impression: ANGEL INHIBITOR USE Disposition: ADMITTED INPATIENT Condition: Stable Admissions Decision to Admit Reason: Admit from ER (General) Decision to Admit/Date: Feb 19, 2019 Time/Decision to Admit Time: 03:25 Departure-Patient Inst. Referrals: NO,LOCAL PHYSICIAN (PCP) Primary Care Physician FABIOLA KAPLAN DO Feb 19, 2019 06:37
--- NOTE | 2019-02-19 06:51 | Pulmonary Consultation ---
History of Present Illness History of Present Illness Date of Consultation 02/19/19 06:45 Time Seen by Provider: 06:46 Date of Admission History of Present Illness 73yo presented to ED secondary to new onset tongue swelling and dysphagia that started around 1830. She took Benadryl without any improvement. No prior episodes like this in the past. No f/ns/c, and no SOB. I am consulted for pulmonary/cc management. Allergies and Home Medications Allergies Coded Allergies: No Known Drug Allergies (Unverified , 02/18/19) Home Medications Atorvastatin Calcium 40 Mg Tablet, 1 EACH PO HS, (Reported) Bupropion Hcl 300 Mg Tab.sr.24h, 300 MG PO HS, (Reported) Escitalopram Oxalate 10 Mg Tablet, 1 EACH PO DAILY, (Reported) Ezetimibe 10 Mg Tablet, 10 MG PO HS, (Reported) Folic Acid 1 Mg Tab, 1 EACH PO DAILY, (Reported) Hctz/Valsartan 1 Tab Tablet, 1 EACH PO DAILY, (Reported) Lansoprazole 15 Mg Capsule.dr, 15 MG PO DAILY, (Reported) Levothyroxine Sodium 150 Mcg Tablet, 75 MCG PO DAILY, (Reported) Meloxicam 7.5 Mg Tablet, 7.5 MG PO DAILY Prescribed by: FABIOLA KAPLAN on 10/26/17 1547 Metformin Hcl 500 Mg Tablet, 1 EACH PO BID WITH MEALS, (Reported) Methotrexate 2.5 Mg Tab, 2.5 MG PO Q7D, (Reported) Oxycodone Hcl/Acetaminophen 1 Each Tablet, 1-2 EACH PO Q4H PRN, (Reported) Tramadol HCl 50 Mg Tablet, 50 MG PO Q4H Prescribed by: FABIOLA KAPLAN on 10/26/17 1543 Past Xroutlt-Uhirrj-Njqccv Hx Patient Social History Alcohol Use: Rarely Uses Recreational Drug Use: No Smoking Status: Current Everyday Smoker (1 PPD) Type Used: Cigarettes (1 PPD) Recent Foreign Travel: No Contact w/Someone Who Travel: No Recent Infectious Disease Expo: No Recent Hopitalizations: No Immunizations Up To Date Date of Pneumonia Vaccine: Jun 21, 2012 Date of Influenza Vaccine: Jun 21, 2012 Past Medical History Surgeries: Yes (HYST/OVARIES INTACT; BACK SURGERY) Appendectomy, Gallbladder, Hysterectomy, Orthopedic Respiratory: Yes (CPAP AT HS) Sleep Apnea Cardiac: Yes High Cholesterol, Hypertension Neurological: No 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, 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 0.0oz. 65.617257lj; 26.5 BMI Method:Stated Exam Exam Vital Signs Date Time Temp Pulse Resp B/P (MAP) Pulse Ox O2 Delivery O2 Flow Rate FiO2 02/19/19 06:30 73 13 107/56 (73) 93 Room Air 02/19/19 06:00 73 12 112/62 (79) 91 Room Air 02/19/19 05:45 75 12 118/53 (74) 90 Room Air 02/19/19 05:30 75 12 113/51 (71) 92 Room Air 02/19/19 05:15 74 12 116/52 (73) 92 Room Air 02/19/19 05:00 97 02/19/19 05:00 75 15 119/48 (71) 92 Room Air 02/19/19 04:46 75 02/19/19 04:45 97.8 Room Air 02/19/19 04:04 78 14 138/64 (88) 98 Room Air 02/18/19 22:56 97.9 70 14 131/62 (85) 98 Room Air I & O 02/19/19 07:00 Intake Total 0 ml Output Total 0 ml Balance 0 ml Height & Weight Height: 5'2.00" Weight: 145lbs. 0.0oz. 65.834851xb; 26.5 BMI Method:Stated General Appearance: No Apparent Distress, Thin HEENT: Other (swollan tongue ) Neck: Full Range of Motion, Normal Inspection, Non Tender, Supple Respiratory: Lungs Clear, Normal Breath Sounds, No Accessory Muscle Use, No Respiratory Distress Cardiovascular: Regular Rate, Rhythm, No Edema, No Gallop, No Murmur Capillary Refill: Less Than 3 Seconds Gastrointestinal: normal bowel sounds, non tender, soft, no organomegaly, no pu lsatile mass Extremity: Normal Capillary Refill, No Pedal Edema Neurologic/Psychiatric: Alert, Oriented x3 Skin: Normal Color, Warm/Dry Results Lab Laboratory Tests 02/18/19 23:15 Assessment/Plan Assessment/Plan Acute angioedema secondary to ANGEL -D/C linsiopril -Monitor in ICU for now -Solumedrol, Benadryl, and Pepcid HTN -Monitor Acute on chronic renal failure -Change IVF to NS at 100cc/hr Anemia -Monitor JOHNY ALONZO DO Feb 19, 2019 06:51
[2019-02-19] MEDS ORDERED: NS IV 1000 ML 1,000 ML IV SCH (07:00)
[2019-02-19] MEDS ORDERED: FAMOTIDINE 20MG/2ML IV (PEPCID) IVP SCH (09:00)
--- NOTE | 2019-02-19 11:51 | Short Stay Summary-Hospitalist ---
History of Present Illness HPI/Chief Complaint CC: Angioedema compromising airway HPI: This is a 73yoWF clinic patient of Yaima Lal who has h/o HTN and current smoking who presented to the ER w/acute onset of severe tongue swelling. She was found to be in angioedema with severe airway compromise requiring multiple IV meds and subsequent admit to ICU in case she lost her airway. Currently she is much improved although her tongue is still swollen. Patient has been on ACEi for past 1.5 years and had no issue like this before. We will plan for transfer to 4th floor with close monitoring and likely DC tomorrow. Patient was counseled for smoking cessation. Source: patient Exam Limitations: no limitations Date Seen 02/19/19 Time Seen by a Provider: 12:00 Attending Physician Suyapa Angeles DO PCP No,Local Physician Referring Physician Date of Admission Feb 19, 2019 at 02:20 Home Medications & Allergies Home Medications Reviewed patient Home Medication Reconciliation performed by pharmacy medication reconciliations data communications technician and/or nursing. Patients Allergies have been reviewed. Allergies Allergies Coded Allergies ANGEL Inhibitors (Verified Allergy, Unknown, Angioedema, 02/19/19) Past Ijbfrhh-Uizbzd-Oipxwf Hx Past Med/Social Hx: Reviewed Nursing Past Med/Soc Hx, Reviewed and Corrections made Patient Social History Marrital Status: single Employed/Student: retired Alcohol Use: Rarely Uses Recreational Drug Use: No Smoking Status: Current Everyday Smoker (1 PPD) Type Used: Cigarettes (1 PPD) Recent Foreign Travel: No Contact w/other who traveled: No Recent Hopitalizations: No Recent Infectious Disease Expo: No Immunizations Up To Date Date of Pneumonia Vaccine: Jun 21, 2012 Date of Influenza Vaccine: Jun 21, 2012 Past Medical History Surgeries: Appendectomy, Gallbladder, Hysterectomy, Orthopedic Cardiac: High Cholesterol, Hypertension 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: No Hysterectomy, Menopausal Genitourinary: Renal Failure Gastrointestinal: Gastroesophageal Reflux, Pancreatitis, Gall Bladder Disease Musculoskeletal: Degenerate Disk Disease, Rheumatoid Arthritis, Chronic Back Pain Endocrine: Hypothyroidsim, Diabetes, Non-Insulin dep Psychosocial: Anxiety, Depression History of Blood Disorders: No Review of Systems Constitutional: see HPI EENTM: mouth swelling, throat swelling Respiratory: no symptoms reported Cardiovascular: no symptoms reported Gastrointestinal: no symptoms reported Genitourinary: no symptoms reported Musculoskeletal: no symptoms reported Skin: no symptoms reported Psychiatric/Neurological: No Symptoms Reported All Other Systems Reviewed Negative Unless Noted: Yes Physical Exam Physical Exam Vital Signs Vital Signs - First Documented 02/18/19 22:56 Temp 97.9 Pulse 70 Resp 14 B/P (MAP) 131/62 (85) Pulse Ox 98 O2 Delivery Room Air Capillary Refill : Less Than 3 Seconds Height, Weight, BMI Height: 5'2.00" Weight: 145lbs. 0.0oz. 65.396724ta; 26.5 BMI Method:Stated General Appearance: No Apparent Distress, WD/WN, Chronically ill, Thin Eyes: Bilateral Eye Normal Inspection, Bilateral Eye PERRL HEENT: Other (swollan tongue ) Neck: Full Range of Motion, Normal Inspection, Non Tender, Supple Respiratory: Lungs Clear, Normal Breath Sounds, No Accessory Muscle Use, No Res piratory Distress Cardiovascular: Regular Rate, Rhythm, No Edema, No Gallop, No Murmur Gastrointestinal: Normal Bowel Sounds, No Organomegaly, No Pulsatile Mass, Non Tender, Soft Back: Normal Inspection, No CVA Tenderness, No Vertebral Tenderness Extremity: Normal Capillary Refill, No Pedal Edema Neurologic/Psychiatric: Alert, Oriented x3 Skin: Normal Color, Warm/Dry Lymphatic: No Adenopathy Results Results/Procedures Labs Laboratory Tests 02/18/19 23:15 Patient resulted labs reviewed. Short Stay Diagnosis Discharge Diagnosis-Short Stay Admission Diagnosis Acute angioedema HTN RA Smoker Final Discharge Diagnosis Acute angioedema HTN RA Smoker Conclusion Plan Transfer to 4 th floor IV steroids Angioedema treatment Diagnosis/Problems Diagnosis/Problems (1) Angioedema Status: Acute Qualifiers: Qualified Codes: T78.3XXA - Angioneurotic edema, initial encounter (2) Hypertension Status: Chronic Qualifiers: Qualified Codes: I10 - Essential (primary) hypertension (3) Smoker Status: Chronic (4) Rheumatoid arthritis Status: Chronic Qualifiers: Qualified Codes: M06.9 - Rheumatoid arthritis, unspecified Clinical Quality Measures DVT/VTE Risk/Contraindication: Risk Factor Score Per Nursin RFS Level Per Nursing on Admit: 2=Moderate SUYAPA ANGELES DO Feb 19, 2019 11:51
[2019-02-19] MEDS ORDERED: diphenhydrAMINE 25 MG TAB (BENADRYL) PO PRN (12:30)
[2019-02-19] MEDS ORDERED: HYDROcodone/APAP 5 MG/325 MG (LORTAB) TAB PO PRN (12:30)
[2019-02-19] MEDS ORDERED: POLYETHYLENE GLYCOL 17 GM (MIRALAX) PACK PO PRN (12:30)
[2019-02-19] MEDS ORDERED: DOCUSATE SODIUM 100 MG (COLACE) CAP PO PRN (12:30)
[2019-02-19] MEDS ORDERED: ACETAMINOPHEN 500 MG TAB (TYLENOL) PO PRN (12:30)
[2019-02-19] MEDS ORDERED: ALPRAZolam 0.25 MG (XANAX) TAB PO PRN (12:30)
[2019-02-19] MEDS ORDERED: MELATONIN 3 MG TABLET PO PRN (12:30)
[2019-02-19] MEDS ORDERED: ONDANSETRON 4 MG/2 ML (SDV) Z0FRAN IVP PRN (12:30)
[2019-02-19] MEDS ORDERED: LOPERAMIDE 2 MG (IMODIUM) CAP PO PRN (12:30)
[2019-02-19] MEDS ORDERED: CALCIUM CARBONATE 500 MG (TUMS) TAB.CHEW PO PRN (12:30)
--- NOTE | 2019-02-19 14:38 | Progress Note-Hospitalist ---
Progress Note Progress Notes/Assess & Plan Date Seen 02/19/19 Time Seen by Provider: 13:50 Assessment & Plan The patient was admitted for significant angioedema of the tongue. This is now resolved. Speech and swallowing are normal. The tongue is normal in contour. Lungs are clear to auscultation. CV is regular. The presumption is that this was angioedema triggered by her ANGEL inhibitor. She describes a similar event 10 years ago or more in the early days of her hypertension and while on a different ANGEL inhibitor. She is instructed at this time to discontinue her ANGEL inhibitor. She has an appointment on Thursday with her provider Yaima Lal a nurse practitioner with [facility]. We will defer a new prescription GIRISH MORROW MD Feb 19, 2019 14:38
--- NOTE | 2019-02-19 14:44 | Discharge Inst-Simple/Standard ---
Discharge Inst-Standard Patient Instructions/Follow Up Plan of Care/Instructions/FU: Stop your valsartan/HCTZ. See your provider Hali Thursday as scheduled to restart an antihypertensive. Activity as Tolerated: Yes Discharge Diet: No Restrictions Return to The Hospital For: Recurrence of symptoms GIRISH MORROW MD Feb 19, 2019 14:41
[2019-02-19] MEDS ORDERED: methylPREDNISolone 125 MG (Solu-MEDROL) VIAL IVP SCH (21:00)
--- OUTSIDE RECORDS SUMMARY | 2019-02-22 20:22 | XMS REPORT | Continuity of Care Document ---
Author Organization Unknown Address Unknown Allergies Active Description Code Type Severity Reaction Onset Reported/Identified Relationship to Patient Clinical Status Yes PAXIL MODERATE OTHER Yes No Known Drug Allergies [id number] Drug Allergy Unknown N/A 02/18/2019 Yes ANGEL Inhibitors [id number] Drug Allergy Unknown Angioedema 02/19/2019 Medications There is no data. Problems Date Dx Coded Attending Type Code Diagnosis Diagnosed By 09/03/2012 Ot 916.0 ABRASION HIP LEG 09/03/2012 Ot 920 CONTUSION FACE/SCALP/NCK 09/03/2012 Ot E000.8 OTHER EXTERNAL CAUSE STATUS 09/03/2012 Ot E817.9 MV BOARD/ALIGHT- PERS NOS 06/15/2013 MARY FUNK, JONE Malhotra Ot 719.45 JOINT PAIN-PELVIS 06/15/2013 JONE MANLEY MD Ot 719.46 JOINT PAIN-L/LEG 06/15/2013 MARY FUNK, JONE Malhotra Ot V57.1 PHYSICAL THERAPY NEC 10/26/2017 FABIOLA KAPLAN DO Ot E03.9 HYPOTHYROIDISM, UNSPECIFIED 10/26/2017 FABIOLA KAPLAN DO Ot E11.9 TYPE 2 DIABETES MELLITUS WITHOUT COMPLIC 10/26/2017 FABIOLA KAPLAN DO Ot E78.00 PURE HYPERCHOLESTEROLEMIA, UNSPECIFIED 10/26/2017 FABIOLA KAPLAN DO Ot F17.210 NICOTINE DEPENDENCE, CIGARETTES, UNCOMPL 10/26/2017 SEKOU KAPLAN DOA Roscoe Ot F32.9 MAJOR DEPRESSIVE DISORDER, SINGLE EPISOD 10/26/2017 FABIOLA KAPLAN DO Ot F41.9 ANXIETY DISORDER, UNSPECIFIED 10/26/2017 FABIOLA KAPLAN DO Ot G47.30 SLEEP APNEA, UNSPECIFIED 10/26/2017 SEKOU KAPLAN DOA K Ot I10 ESSENTIAL (PRIMARY) HYPERTENSION 10/26/2017 FABIOLA KAPLAN DO Ot M25.571 PAIN IN RIGHT ANKLE AND JOINTS OF RIGHT 10/26/2017 EUSEBIO DO, FABIOLA K Ot S92.151A DISPL AVULSION FRACTURE (CHIP FRACTURE) 10/26/2017 [facility] FABIOLA K Ot W10.9XXA FALL (ON) (FROM) UNSPECIFIED STAIRS AND 10/26/2017 [facility] FABIOLA Roscoe Ot Z79.84 DIET KITCHEN COOK (CURRENT) USE OF ORAL HYPOGLYC 10/26/2017 [facility] Ot Z87.19 PERSONAL HISTORY OF OTHER DISEASES OF TH 10/26/2017 [facility] FABIOLA K Ot Z90.49 ACQUIRED ABSENCE OF OTHER SPECIFIED PART 10/26/2017 [facility] K Ot Z90.710 ACQUIRED ABSENCE OF BOTH CERVIX AND UTER 10/28/2017 [facility] E03.9 HYPOTHYROIDISM, UNSPECIFIED 10/28/2017 [facility] K Ot E11.9 TYPE 2 DIABETES MELLITUS WITHOUT COMPLIC 10/28/2017 [facility] K Ot E78.00 PURE HYPERCHOLESTEROLEMIA, UNSPECIFIED 10/28/2017 [facility] K Ot F17.210 NICOTINE DEPENDENCE, CIGARETTES, UNCOMPL 10/28/2017 [facility] K Ot F32.9 MAJOR DEPRESSIVE DISORDER, SINGLE EPISOD 10/28/2017 [facility] K Ot F41.9 ANXIETY DISORDER, UNSPECIFIED 10/28/2017 [facility] K Ot G47.30 SLEEP APNEA, UNSPECIFIED 10/28/2017 [facility] FABIOLA K Ot I10 ESSENTIAL (PRIMARY) HYPERTENSION 10/28/2017 [facility] K Ot M25.571 PAIN IN RIGHT ANKLE AND JOINTS OF RIGHT 10/28/2017 [facility] S92.151A DISPL AVULSION FRACTURE (CHIP FRACTURE) 10/28/2017 [facility] FABIOLA K Ot W10.9XXA FALL (ON) (FROM) UNSPECIFIED STAIRS AND 10/28/2017 [facility] Roscoe Ot Z79.84 HALF-WAY (CURRENT) USE OF ORAL HYPOGLYC 10/28/2017 [facility] K Ot Z87.19 PERSONAL HISTORY OF OTHER DISEASES OF TH 10/28/2017 EUSE[facility] DOSEKOUA K Ot Z90.49 ACQUIRED ABSENCE OF OTHER SPECIFIED PART 10/28/2017 [facility] Ot Z90.710 ACQUIRED ABSENCE OF BOTH CERVIX AND UTER 02/08/2018 FABIOLA KAPLAN DO Ot E03.9 HYPOTHYROIDISM, UNSPECIFIED 02/08/2018 [facility] FABIOLA Malhotra Ot E11.9 TYPE 2 DIABETES MELLITUS WITHOUT COMPLIC 02/08/2018 [facility] FABIOLA Malhotra Ot E78.00 PURE HYPERCHOLESTEROLEMIA, UNSPECIFIED 02/08/2018 [facility] LEONARD FABIOLA Malhotra Ot F32.9 MAJOR DEPRESSIVE DISORDER, SINGLE EPISOD 02/08/2018 [facility] FABIOLA Malhotra Ot F41.9 ANXIETY DISORDER, UNSPECIFIED 02/08/2018 [place] FABIOLA Malhotra Ot G47.30 SLEEP APNEA, UNSPECIFIED 02/08/2018 [facility] FABIOLA Malhotra Ot I10 ESSENTIAL (PRIMARY) HYPERTENSION 02/08/2018 [facility] FABIOLA Roscoe Ot M25.562 PAIN IN LEFT KNEE 02/08/2018 [facility] FABIOLA Roscoe Ot S83.92XA SPRAIN OF UNSPECIFIED SITE OF LEFT KNEE, 02/08/2018 [facility] LEONARD FABIOLA Malhotra Ot X50.0XXA OVEREXERTION FROM STRENUOUS MOVEMENT OR 02/08/2018 [facility] LEONARD FABIOLA Malhotra Ot Z79.84 DIET KITCHEN COOK (CURRENT) USE OF ORAL HYPOGLYC 02/08/2018 [facility] LEONARD FABIOLA Malhotra Ot Z87.19 PERSONAL HISTORY OF OTHER DISEASES OF TH 02/08/2018 [facility] LEONARD FABIOLA Malhotra Ot Z90.49 ACQUIRED ABSENCE OF OTHER SPECIFIED PART 02/08/2018 [facility] LEONARD FABIOLA Malhotra Ot Z90.710 ACQUIRED ABSENCE OF BOTH CERVIX AND UTER 02/08/2018 [facility] LEONARD FABIOLA Malhotra Ot Z98.890 OTHER SPECIFIED POSTPROCEDURAL STATES 02/10/2018 [facility] LEONARD FABIOLA Malhotra Ot E03.9 HYPOTHYROIDISM, UNSPECIFIED 02/10/2018 [facility] FABIOLA Malhotra Ot E11.9 TYPE 2 DIABETES MELLITUS WITHOUT COMPLIC 02/10/2018 [facility] LEONARD FABIOLA Malhotra Ot E78.00 PURE HYPERCHOLESTEROLEMIA, UNSPECIFIED 02/10/2018 [facility] FABIOLA Malhotra Ot F32.9 MAJOR DEPRESSIVE DISORDER, SINGLE EPISOD 02/10/2018 [facility] FABIOLA Malhotra Ot F41.9 ANXIETY DISORDER, UNSPECIFIED 02/10/2018 [place] FABIOLA Malhotra Ot G47.30 SLEEP APNEA, UNSPECIFIED 02/10/2018 FABIOLA KAPLAN DO Ot I10 ESSENTIAL (PRIMARY) HYPERTENSION 02/10/2018 FABIOLA KAPLAN DO Ot M25.562 PAIN IN LEFT KNEE 02/10/2018 FABIOLA KAPLAN DO Ot S83.92XA SPRAIN OF UNSPECIFIED SITE OF LEFT KNEE, 02/10/2018 FABIOLA KAPLAN DO Ot X50.0XXA OVEREXERTION FROM STRENUOUS MOVEMENT OR 02/10/2018 FABIOLA KAPLAN DO Ot Z79.84 DIET KITCHEN COOK (CURRENT) USE OF ORAL HYPOGLYC 02/10/2018 FABIOLA KAPLAN DO Ot Z87.19 PERSONAL HISTORY OF OTHER DISEASES OF TH 02/10/2018 FABIOLA KAPLAN DO Ot Z90.49 ACQUIRED ABSENCE OF OTHER SPECIFIED PART 02/10/2018 FABIOLA KAPLAN DO Ot Z90.710 ACQUIRED ABSENCE OF BOTH CERVIX AND UTER 02/10/2018 FABIOLA KAPLAN DO Ot Z98.890 OTHER SPECIFIED POSTPROCEDURAL STATES 03/30/2018 Yaima Lal W 244.9 UNSPECIFIED HYPOTHYROIDISM 03/30/2018 Hali, Yaima W 250.00 DIABETES MELLITUS WITHOUT MENTION OF COMPLICATION, TYPE II OR UNSPECIFIED TYPE, NOT STATED UNCONTROLLED 03/30/2018 Hali Yaima W 272.8 OTHER DISORDERS OF LIPOID METABOLISM 03/30/2018 Hali Yaima W 401.9 UNSPECIFIED ESSENTIAL HYPERTENSION 03/30/2018 Hali, Yaima W E03.9 HYPOTHYROIDISM, UNSPECIFIED 03/30/2018 Hali, Yaima W E11.9 TYPE 2 DIABETES MELLITUS WITHOUT COMPLICATIONS 03/30/2018 Yaima Lal W E78.5 HYPERLIPIDEMIA, UNSPECIFIED 03/30/2018 Hali Yaima W I10 ESSENTIAL (PRIMARY) HYPERTENSION 03/30/2018 Hali Yaima W 244.9 UNSPECIFIED HYPOTHYROIDISM 03/30/2018 Hali, Yaima W 250.00 DIABETES MELLITUS WITHOUT MENTION OF COMPLICATION, TYPE II OR UNSPECIFIED TYPE, NOT STATED UNCONTROLLED 03/30/2018 Hali Yaima W 272.8 OTHER DISORDERS OF LIPOID METABOLISM 03/30/2018 Hali, Yaima W 285.9 03/30/2018 Hali Yaima W 401.9 UNSPECIFIED ESSENTIAL HYPERTENSION 03/30/2018 Hali Yaima W 714.0 RHEUMATOID ARTHRITIS 03/30/2018 Hali Yaima W D64.9 ANEMIA, UNSPECIFIED 03/30/2018 Hali, Yaima W E03.9 HYPOTHYROIDISM, UNSPECIFIED 03/30/2018 Hali, Yaima W E11.9 TYPE 2 DIABETES MELLITUS WITHOUT COMPLICATIONS 03/30/2018 Hali, Yaima W E78.5 HYPERLIPIDEMIA, UNSPECIFIED 03/30/2018 Hali, Yaima W I10 ESSENTIAL (PRIMARY) HYPERTENSION 03/30/2018 Hali, Yaima W M05.9 RHEUMATOID ARTHRITIS WITH RHEUMATOID FACTOR, UNSPECIFIED 03/30/2018 Hali, Yaima W M06.9 RHEUMATOID ARTHRITIS, UNSPECIFIED 03/30/2018 Hali, Yaima W 244.9 03/30/2018 Hali, Yaima W 250.00 DIABETES MELLITUS WITHOUT MENTION OF COMPLICATION, TYPE II OR UNSPECIFIED TYPE, NOT STATED UNCONTROLLED 03/30/2018 Hali, Yaima W 272.8 OTHER DISORDERS OF LIPOID METABOLISM 03/30/2018 Hali, Yaima W 285.9 03/30/2018 Hali, Yaima W 401.9 UNSPECIFIED ESSENTIAL HYPERTENSION 03/30/2018 Hali, Yaima W 714.0 03/30/2018 Hali, Yaima W D64.9 ANEMIA, UNSPECIFIED 03/30/2018 Hali, Yaima W E03.9 HYPOTHYROIDISM, UNSPECIFIED 03/30/2018 Hali, Yaima W E11.9 TYPE 2 DIABETES MELLITUS WITHOUT COMPLICATIONS 03/30/2018 Hali, Yaima W E78.5 HYPERLIPIDEMIA, UNSPECIFIED 03/30/2018 Hali, Yaima W I10 ESSENTIAL (PRIMARY) HYPERTENSION 03/30/2018 Hali, Yaima W M05.9 RHEUMATOID ARTHRITIS WITH RHEUMATOID FACTOR, UNSPECIFIED 03/30/2018 Hali, Yaima W M06.9 RHEUMATOID ARTHRITIS, UNSPECIFIED 03/31/2018 Hali, Yaima W 790.6 OTHER ABNORMAL BLOOD CHEMISTRY 03/31/2018 Hali, Yaima W R79.0 ABNORMAL LEVEL OF BLOOD MINERAL 04/02/2018 Hali, Yaima W 250.00 DIABETES MELLITUS WITHOUT MENTION OF COMPLICATION, TYPE II OR UNSPECIFIED TYPE, NOT STATED UNCONTROLLED 04/02/2018 Hali, Yaima W E11.9 TYPE 2 DIABETES MELLITUS WITHOUT COMPLICATIONS 04/02/2018 Hali, Yaima W 250.00 DIABETES MELLITUS WITHOUT MENTION OF COMPLICATION, TYPE II OR UNSPECIFIED TYPE, NOT STATED UNCONTROLLED 04/02/2018 Hali, Yaima W E11.9 TYPE 2 DIABETES MELLITUS WITHOUT COMPLICATIONS 07/20/2018 Hali, Yaima W 244.9 UNSPECIFIED HYPOTHYROIDISM 07/20/2018 Hali, Yaima W 272.8 07/20/2018 Hali, Yaima W 275.09 OTHER DISORDERS OF IRON METABOLISM 07/20/2018 Hali, Yaima W 285.9 ANEMIA, UNSPECIFIED 07/20/2018 Hali, Yaima W 401.9 UNSPECIFIED ESSENTIAL HYPERTENSION 07/20/2018 Hali, Yaima W 714.0 07/20/2018 Hali, Yaima W 780.79 OTHER MALAISE AND FATIGUE 07/20/2018 Hali, Yaima W D64.9 ANEMIA, UNSPECIFIED 07/20/2018 Hali, Yaima W E03.9 HYPOTHYROIDISM, UNSPECIFIED 07/20/2018 Hali, Yaima W E61.1 IRON DEFICIENCY 07/20/2018 Hali, Yaima W E78.5 HYPERLIPIDEMIA, UNSPECIFIED 07/20/2018 Hali, Yaima W I10 ESSENTIAL (PRIMARY) HYPERTENSION 07/20/2018 Hali, Yaima W M06 OTHER RHEUMATOID ARTHRITIS 07/20/2018 Hali, Yaima W R53.1 WEAKNESS 07/20/2018 Hali, Yaima W 244.9 07/20/2018 Hali, Yaima W 272.8 07/20/2018 Hali, Yaima W 275.09 OTHER DISORDERS OF IRON METABOLISM 07/20/2018 Hali, Yaima W 285.9 07/20/2018 Hali, Yaima W 338.2 07/20/2018 Hali, Yaima W 401.9 UNSPECIFIED ESSENTIAL HYPERTENSION 07/20/2018 Hali, Yaima W 403.00 07/20/2018 Hali, Yaima W 714.0 07/20/2018 Hali, Yaima W 724.5 07/20/2018 Hali, Yaima W 780.79 07/20/2018 Hali, Yaima W D64.9 ANEMIA, UNSPECIFIED 07/20/2018 Hali, Yaima W E03.9 HYPOTHYROIDISM, UNSPECIFIED 07/20/2018 Hali, Yaiam W E61.1 IRON DEFICIENCY 07/20/2018 Hali, Yaima W E78.5 HYPERLIPIDEMIA, UNSPECIFIED 07/20/2018 Hali, Yamia W G89.29 OTHER CHRONIC PAIN 07/20/2018 Hali, Yaima W I10 ESSENTIAL (PRIMARY) HYPERTENSION 07/20/2018 Hali, Yaima W I12.9 HYPERTENSIVE CHRONIC KIDNEY DISEASE WITH STAGE 1 THROUGH STAGE 4 CHRONIC KIDNEY DISEASE, OR UNSPECIFIED CHRONIC KIDNEY DISEASE 07/20/2018 Hali, Yaima W M06 OTHER RHEUMATOID ARTHRITIS 07/20/2018 Hali, Yaima W R52 PAIN, UNSPECIFIED 07/20/2018 Hali, Yaima W R53.1 WEAKNESS 07/20/2018 Hali, Yaima W 244.9 07/20/2018 Hali, Yaima W 272.8 07/20/2018 Hali, Yaima W 275.09 07/20/2018 Hali, Yaima W 285.9 07/20/2018 Hali, Yaima W 338.2 07/20/2018 Hali, Yaima W 401.9 07/20/2018 Hali, Yaima W 403.00 07/20/2018 Hali, Yaima W 714.0 07/20/2018 Hali, Yaima W 724.5 07/20/2018 Hali, Yaima W 780.79 07/20/2018 Hali, Yaima W D64.9 ANEMIA, UNSPECIFIED 07/20/2018 Hali, Yaima W E03.9 HYPOTHYROIDISM, UNSPECIFIED 07/20/2018 Hali, Yaima W E61.1 IRON DEFICIENCY 07/20/2018 Hali, Yaima W E78.5 HYPERLIPIDEMIA, UNSPECIFIED 07/20/2018 Hali, Yaima W G89.29 OTHER CHRONIC PAIN 07/20/2018 Hali, Yaima W I10 ESSENTIAL (PRIMARY) HYPERTENSION 07/20/2018 Hali, Yaima W I12.9 HYPERTENSIVE CHRONIC KIDNEY DISEASE WITH STAGE 1 THROUGH STAGE 4 CHRONIC KIDNEY DISEASE, OR UNSPECIFIED CHRONIC KIDNEY DISEASE 07/20/2018 Hali, Yaima W M06 OTHER RHEUMATOID ARTHRITIS 07/20/2018 Hali, Yaima W R52 PAIN, UNSPECIFIED 07/20/2018 Hali, Yaima W R53.1 WEAKNESS 08/27/2018 Pineda, [place]a W M19.9 OSTEOARTHRITIS, UNSPECIFIED SITE 08/27/2018 Pineda, [place] W 280.9 IRON DEFICIENCY ANEMIA, UNSPECIFIED 08/27/2018 Pineda, [place] W 401.0 MALIGNANT ESSENTIAL HYPERTENSION 08/27/2018 Pineda, [place] W 585.3 CHRONIC KIDNEY DISEASE, STAGE III (MODERATE) 08/27/2018 Pineda, [place] W D50.9 IRON DEFICIENCY ANEMIA, UNSPECIFIED 08/27/2018 Pineda, [place] W I10 ESSENTIAL (PRIMARY) HYPERTENSION 08/27/2018 Pineda, [place] W M19.9 OSTEOARTHRITIS, UNSPECIFIED SITE 08/27/2018 Pineda, [place] W N18.3 CHRONIC KIDNEY DISEASE, STAGE 3 (MODERATE) 08/27/2018 Pineda, [place] W 280.9 IRON DEFICIENCY ANEMIA, UNSPECIFIED 08/27/2018 Pineda, [place] W 401.0 MALIGNANT ESSENTIAL HYPERTENSION 08/27/2018 Pineda, [place] W 585.3 CHRONIC KIDNEY DISEASE, STAGE III (MODERATE) 08/27/2018 Pineda, [place] W D50.9 IRON DEFICIENCY ANEMIA, UNSPECIFIED 08/27/2018 Pineda, [place] W I10 ESSENTIAL (PRIMARY) HYPERTENSION 08/27/2018 Pineda, [place] W M19.9 OSTEOARTHRITIS, UNSPECIFIED SITE 08/27/2018 Pineda, [place] W N18.3 CHRONIC KIDNEY DISEASE, STAGE 3 (MODERATE) 08/27/2018 Pineda, [place] W 280.9 IRON DEFICIENCY ANEMIA, UNSPECIFIED 08/27/2018 Pineda, [place] W 401.0 MALIGNANT ESSENTIAL HYPERTENSION 08/27/2018 Pineda, [place] W 585.3 CHRONIC KIDNEY DISEASE, STAGE III (MODERATE) 08/27/2018 Pineda, [place]a W D50.9 IRON DEFICIENCY ANEMIA, UNSPECIFIED 08/27/2018 Pineda, [place]a W I10 ESSENTIAL (PRIMARY) HYPERTENSION 08/27/2018 Pineda, [place] W M19.9 OSTEOARTHRITIS, UNSPECIFIED SITE 08/27/2018 Pineda, [place]a W N18.3 CHRONIC KIDNEY DISEASE, STAGE 3 (MODERATE) Procedures There is no data. Results Test Result Range Ferritin - 10/22/16 19:16 Ferritin 301.44 ng/mL 4.63-204.00 Thyroid Stimulating Hormone - 10/22/16 19:16 TSH 0.79 mIU/mL 0.32-5.00 Thyroid Stimulating Hormone - 08/28/17 12:50 TSH 0.42 mIU/mL 0.32-5.00 Surgical Pathology - 10/30/17 13:44 Surg Path Sent to [facility] Thyroid Stimulating Hormone - 03/30/18 10:30 TSH 0.79 mIU/mL 0.32-5.00 Ferritin - 03/30/18 14:35 Ferritin 13.39 ng/mL 4.63-204.00 Hemoglobin A1C - 04/02/18 11:50 % A1C 5.30 % 5.40-6.60 AvGlu 113 mg/dL 70-110 Ferritin - 07/20/18 11:48 Ferritin 15.61 ng/mL 4.63-204.00 Free T3 - 07/20/18 11:48 Free T3 2.55 pg/ml 1.45-3.48 Free T4 - 07/20/18 11:48 Free T4 1.17 ng/dL 0.81-1.61 Thyroid Stimulating Hormone - 07/20/18 11:48 TSH 0.65 mIU/mL 0.32-5.00 Ferritin - 08/27/18 14:30 Ferritin 14.02 ng/mL 4.63-204.00 MANJIT w/Reflex - 08/27/18 14:30 MANJIT DIRECT NEGATIVE NEGATIVE Complete blood count (CBC) with automated white blood cell (WBC) differential - 02/18/19 23:15 Blood leukocytes automated count (number/volume) 13.1 10*3/uL 4.3-11.0 Blood erythrocytes automated count (number/volume) 3.95 10*6/uL 4.35-5.85 Venous blood hemoglobin measurement (mass/volume) 10.6 g/dL 11.5-16.0 Blood hematocrit (volume fraction) 32 % 35-52 Automated erythrocyte mean corpuscular volume 82 [foz_us] 80-99 Automated erythrocyte mean corpuscular hemoglobin (mass per erythrocyte) 27 pg 25-34 Automated erythrocyte mean corpuscular hemoglobin concentration measurement (mass/volume) 33 g/dL 32-36 Automated erythrocyte distribution width ratio 17.7 % 10.0- 14.5 Automated blood platelet count (count/volume) 338 10*3/uL 130-400 Automated blood platelet mean volume measurement 11.2 [foz_us] 7.4-10.4 Automated blood neutrophils/100 leukocytes 73 % 42-75 Automated blood lymphocytes/100 leukocytes 17 % 12-44 Blood monocytes/100 leukocytes 6 % 0-12 Automated blood eosinophils/100 leukocytes 3 % 0-10 Automated blood basophils/100 leukocytes 1 % 0-10 Blood neutrophils automated count (number/volume) 9.6 10*3 1.8-7.8 Blood lymphocytes automated count (number/volume) 2.3 10*3 1.0-4.0 Blood monocytes automated count (number/volume) 0.7 10*3 0.0- 1.0 Automated eosinophil count 0.4 10*3/uL 0.0-0.3 Automated blood basophil count (count/volume) 0.1 10*3/uL 0.0-0.1 Comprehensive metabolic panel - 02/18/19 23:15 Serum or plasma sodium measurement (moles/volume) 140 mmol/L 135-145 Serum or plasma potassium measurement (moles/volume) 4.2 mmol/L 3.6-5.0 Serum or plasma chloride measurement (moles/volume) 106 mmol/L 98-107 Carbon dioxide 20 mmol/L 21-32 Serum or plasma anion gap determination (moles/volume) 14 mmol/L 5-14 Serum or plasma urea nitrogen measurement (mass/volume) 28 mg/dL 7-18 Serum or plasma creatinine measurement (mass/volume) 2.15 mg/dL 0.60-1.30 Serum or plasma urea nitrogen/creatinine mass ratio 13 NRG Serum or plasma creatinine measurement with calculation of estimated glomerular filtration rate 22 NRG Serum or plasma glucose measurement (mass/volume) 129 mg/dL 70-105 Serum or plasma calcium measurement (mass/volume) 9.7 mg/dL 8.5-10.1 Serum or plasma total bilirubin measurement (mass/volume) 0.2 mg/dL 0.1-1.0 Serum or plasma alkaline phosphatase measurement (enzymatic activity/volume) 168 U/L 40-136 Serum or plasma aspartate aminotransferase measurement (enzymatic activity/volume) 17 U/L 5-34 Serum or plasma alanine aminotransferase measurement (enzymatic activity/volume) 13 U/L 0-55 Serum or plasma protein measurement (mass/volume) 7.6 g/dL 6.4-8.2 Serum or plasma albumin measurement (mass/volume) 4.2 g/dL 3.2-4.5 CALCIUM CORRECTED 9.5 mg/dL 8.5-10.1 Capillary blood glucose measurement by glucometer (mass/volume) - 02/19/19 13:44 Capillary blood glucose measurement by glucometer (mass/volume) 205 mg/dL 70-110 Encounters ACCT No. Visit Date/Time Discharge Status Pt. Type Provider Facility Loc./Unit Complaint [id number] 02/19/2019 02:20:00 02/19/2019 15:03:00 DIS Inpatient AZAEL MENDEZ DO [facility] ICU ANGIOEDEMA OF TONGUE;ANGEL INHIBITOR USE [id number] 02/08/2018 20:48:00 02/08/2018 21:57:00 DIS Emergency FABIOLA KAPLAN DO [facility] ER LEFT KNEE PAIN [id number] 10/26/2017 14:53:00 10/26/2017 16:27:00 DIS Emergency FABIOLA KAPLAN DO [facility] ER FALL/R FOOT INJ [id number] 06/15/2013 13:41:00 06/15/2013 14:40:00 DIS Outpatient JONE MANLEY MD [facility] REHAB R KNEE AND HIP PAIN [id number] 09/03/2012 14:55:00 Document Registration [id number] 08/27/2018 15:19:00 08/27/2018 23:59:00 DIS Outpatient Mayo Pineda [id number] 07/20/2018 13:22:00 07/20/2018 23:59:00 DIS Outpatient Yaima Lal [id number] 04/02/2018 14:41:00 04/02/2018 23:59:00 DIS Outpatient Yaima Lal [id number] 03/31/2018 14:34:00 03/31/2018 23:59:00 DIS Outpatient Yaima Lal [id number] 03/30/2018 13:03:00 03/30/2018 23:59:00 DIS Outpatient Yaima Lal [id number] 10/30/2017 15:44:00 10/30/2017 23:59:00 DIS Outpatient Mayo Pineda [id number] 08/28/2017 12:50:00 08/28/2017 23:59:00 DIS Outpatient Yaima Lal [id number] 10/23/2016 07:31:00 10/23/2016 07:31:00 CAN Outpatient Jone Manley [id number] 10/22/2016 19:13:00 10/22/2016 23:59:00 DIS Outpatient Jone Manley
== END 2019-02-19 14:40 | disposition home or self-care (01) ==
LOC: EDUNIT# 22:32 → ER 22:33 → ICU 22:34 → UNDOADMOB 02-19 02:20 → UNDODISOB 02-19 15:03
PROVIDERS: ADMIT Internal Medicine; ATTEND Internal Medicine
DX: T78.3XXA Angioneurotic edema, initial encounter (principal); T46.4X5A Adverse effect of angiotensin-converting-enzyme inhibitors, initial encounter; I12.9 Hypertensive chronic kidney disease with stage 1 through stage 4 chronic kidney disease, or unspecified chronic kidney disease; N18.9 Chronic kidney disease, unspecified; E11.9 Type 2 diabetes mellitus without complications; F17.210 Nicotine dependence, cigarettes, uncomplicated; E78.00 Pure hypercholesterolemia, unspecified; K21.9 Gastro-esophageal reflux disease without esophagitis; M06.9 Rheumatoid arthritis, unspecified; E03.9 Hypothyroidism, unspecified; G47.30 Sleep apnea, unspecified; F41.9 Anxiety disorder, unspecified; F32.9 Major depressive disorder, single episode, unspecified; Z22.322 Carrier or suspected carrier of Methicillin resistant Staphylococcus aureus; Z79.84 Long term (current) use of oral hypoglycemic drugs; Z79.899 Other long term (current) drug therapy
CPT/HCPCS: 36415; 80053; 82962; 85025; 93041; 96372; 96374; 96375; 96376; G0378

== ENCOUNTER 2019-02-24 09:48 | Outpatient (RCR) | payer MEDICARE, OTHER ==
[2019-02-24] MEDS ORDERED: APIX5TAB PO ×2 (13:03→14:04)
[2019-02-24] MEDS ORDERED: OMEP20CA13 (13:29)
[2019-02-24] MEDS ORDERED: ASPI-808 (13:29)
[2019-02-24] MEDS ORDERED: ALLO100T (13:29)
[2019-02-24] MEDS ORDERED: LEVO75TA6 (13:29)
[2019-02-24] MEDS ORDERED: HYDR-3820 (13:29)
[2019-02-24] MEDS ORDERED: NYST1000 (13:29)
[2019-02-24] MEDS ORDERED: ALPR1TAB7 (13:29)
[2019-02-24] MEDS ORDERED: LISI1TAB6 (13:29)
[2019-02-24] MEDS ORDERED: AMLO5TAB9 (13:29)
[2019-02-24] MEDS ORDERED: LINA5TAB (13:29)
[2019-02-24] MEDS ORDERED: BETA1TAB15 (13:29)
[2019-02-24] MEDS ORDERED: METO-352 PO (14:04)
== END 2019-05-25 | disposition home or self-care (01) ==
LOC: CARD 09:48
PROVIDERS: ATTEND Registered Nurse
DX: R00.2 Palpitations (principal); I10 Essential (primary) hypertension; F41.9 Anxiety disorder, unspecified; G47.33 Obstructive sleep apnea (adult) (pediatric); R53.83 Other fatigue
CPT/HCPCS: 93005; 93225; 93226

== ENCOUNTER 2019-02-24 11:51 | Emergency (ER) | payer MEDICARE, OTHER ==
[~2019-02-24] VITALS: Ht 157.5 cm; Wt 65.8 kg
--- NOTE | 2019-02-24 11:51 | NUR ---
PATIENT ARRIVES TO ROOM AND IS FOUND TO BE IN AFIB WITH RVR. DR DOLL IN ROOM ALONG WITH THIS RN AND MILAGRO COKER
[2019-02-24] MEDS ORDERED: NS IV 1000 ML 1,000 ML IV SCH (12:06)
[2019-02-24] MEDS ORDERED: DILTIAZEM IV FOR DRIP 125 MG in NS (IVPB) 100 ML IV SCH (12:15)
[2019-02-24] MEDS ORDERED: ASPIRIN 81 MG CHEW (CHILDREN'S ASA) PO ONE (12:15)
[2019-02-24] MEDS ORDERED: DILTIAZEM 25 MG/5 ML INJ (CARDIZEM) VIAL IVP ONE (12:15)
--- NOTE | 2019-02-24 12:17 | ED Cardiac General ---
History of Present Illness General Chief Complaint: Cardiac/General Problems Stated Complaint: A-FIB Source: patient Exam Limitations: no limitations History of Present Illness Date Seen by Provider: Feb 24, 2019 Time Seen by Provider: 12:03 Initial Comments Patient presents to ER by private conveyance with chief complaint she's felt a little bit tired for the past several weeks as well as she's had some racing heart feeling this morning. She was called by the company who is monitoring her cardiac rehab nurse and told that she was in atrial fibrillation and come to the ER. She does not history of atrial fibrillation and is not on blood thinners. She has no history of coronary disease but she did have a heart catheter by Dr. Atkins at [place], [place] and described it as a negative examination. She is not having any shortness of breath or weakness presently. She was put on the cardiac rehab nurse by her primary care provider, nurse practitioner Yvrose. She's not having any nausea sweats chills fever cough diarrhea or constipation. She does take iron tablets and has black, non-tarry stools. No vaginal bleeding. Allergies and Home Medications Allergies Coded Allergies: ANGEL Inhibitors (Verified Allergy, Unknown, Angioedema, 02/24/19) Home Medications Apixaban 5 Mg Tablet, 5 MG PO BID Prescribed by: IESHA DOLL on 02/24/19 1303 Atorvastatin Calcium 40 Mg Tablet, 1 EACH PO HS, (Reported) Bupropion Hcl 300 Mg Tab.sr.24h, 300 MG PO HS, (Reported) Escitalopram Oxalate 10 Mg Tablet, 1 EACH PO DAILY, (Reported) Ezetimibe 10 Mg Tablet, 10 MG PO HS, (Reported) Metformin Hcl 500 Mg Tablet, 1 EACH PO BID WITH MEALS, (Reported) Patient Home Medication List Home Medication List Reviewed: Yes Review of Systems Review of Systems Constitutional: No chills, No diaphoresis EENTM: No Blurred Vision, No Double Vision Respiratory: Denies Cough, Denies Shortness of Air Cardiovascular: Denies Chest Pain, Denies Lightheadedness Gastrointestinal: Denies Abdomen Distended, Denies Abdominal Pain Genitourinary: Denies Burning, Denies Discharge Musculoskeletal: No back pain, No joint pain Past [id number]-Yalikc Hx Patient Social History Alcohol Use: Denies Use Recreational Drug Use: No Smoking Status: Current Everyday Smoker Type Used: Cigarettes Recent Hopitalizations: No Immunizations Up To Date Date of Pneumonia Vaccine: Jun 21, 2012 Date of Influenza Vaccine: Jun 21, 2012 Past Medical History Surgeries: Yes (HYST/OVARIES INTACT; BACK SURGERY) Appendectomy, Gallbladder, Hysterectomy, Orthopedic Respiratory: Yes (CPAP AT HS) Sleep Apnea Cardiac: Yes High Cholesterol, Hypertension Neurological: No 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 Disorders: No DIRECTOR PLANS History: Hysterectomy, Menopausal Genitourinary: Yes (NOT ON DIALYSIS AT THIS TIME 02/18/19) Renal Failure Gastrointestinal: Yes (S/P JAMEL) Gastroesophageal Reflux, Pancreatitis, Gall Bladder Disease Musculoskeletal: Yes (S/P RIGHT KNEE SURGERY AND BACK SURGERY) Degenerate Disk Disease, Rheumatoid Arthritis, Chronic Back Pain Endocrine: Yes Hypothyroidsim, Diabetes, Non-Insulin dep HEENT: No Cancer: No Psychosocial: Yes Anxiety, Depression Integumentary: Yes (MRSA + NASAL SWAB) Blood Disorders: No Physical Exam Vital Signs Vital Signs - First Documented 02/24/19 02/24/19 11:51 12:28 Temp 98.1 Pulse 138 Resp 16 B/P (MAP) 139/84 (102) Pulse Ox 96 O2 Delivery Room Air Capillary Refill : Height, Weight, BMI Height: 5'2.00" Weight: 145lbs. 0.0oz. 65.076494ft; 26.5 BMI Method:Stated General Appearance: No Apparent Distress, WD/WN HEENT: PERRL/EOMI, Pharynx Normal, Moist Mucous Membranes Neck: Full Range of Motion, Normal Inspection Respiratory: Lungs Clear, Normal Breath Sounds, No Accessory Muscle Use, No Respiratory Distress Cardiovascular: Regular Rate, Rhythm, No Edema Gastrointestinal: Normal Bowel Sounds, Non Tender, Soft Progress/Results/Core Measures Results/Orders Lab Results Laboratory Tests Test 02/24/19 12:09 Range/Units White Blood Count 11.0 4.3-11.0 10^3/uL Red Blood Count 4.70 4.35-5.85 10^6/uL Hemoglobin 12.5 11.5-16.0 G/DL Hematocrit 39 35-52 % Mean Corpuscular Volume 82 80-99 FL Mean Corpuscular Hemoglobin 27 25-34 PG Mean Corpuscular Hemoglobin Concent 33 32-36 G/DL Red Cell Distribution Width 17.9 H 10.0-14.5 % Platelet Count 407 H 130-400 10^3/uL Mean Platelet Volume 10.4 7.4-10.4 FL Neutrophils (%) (Auto) 73 42-75 % Lymphocytes (%) (Auto) 16 12-44 % Monocytes (%) (Auto) 7 0-12 % Eosinophils (%) (Auto) 3 0-10 % Basophils (%) (Auto) 1 0-10 % Neutrophils # (Auto) 8.1 H 1.8-7.8 X 10^3 Lymphocytes # (Auto) 1.8 1.0-4.0 X 10^3 Monocytes # (Auto) 0.7 0.0-1.0 X 10^3 Eosinophils # (Auto) 0.4 H 0.0-0.3 10^3/uL Basophils # (Auto) 0.1 0.0-0.1 10^3/uL Sodium Level 142 135-145 MMOL/L Potassium Level 4.0 3.6-5.0 MMOL/L Chloride Level 106 98-107 MMOL/L Carbon Dioxide Level 23 21-32 MMOL/L Anion Gap 13 5-14 MMOL/L Blood Urea Nitrogen 16 7-18 MG/DL Creatinine 1.06 0.60-1.30 MG/DL Estimat Glomerular Filtration Rate 51 BUN/Creatinine Ratio 15 Glucose Level 124 H 70-105 MG/DL Calcium Level 10.1 8.5-10.1 MG/DL Corrected Calcium 9.9 8.5-10.1 MG/DL Total Bilirubin 0.4 0.1-1.0 MG/DL Aspartate Amino Transf (AST/SGOT) 18 5-34 U/L Alanine Aminotransferase (ALT/SGPT) 15 0-55 U/L Alkaline Phosphatase 173 H 40-136 U/L Troponin I 0.028 <0.028 NG/ML Total Protein 7.9 6.4-8.2 GM/DL Albumin 4.3 3.2-4.5 GM/DL Thyroid Stimulating Hormone (TSH) 2.55 0.35-4.94 UIU/ML My Orders Orders - IESHA DOLL Aspirin Chewable Tablet (Baby Aspirin Ch (02/24/19 12:15) Troponin I (02/24/19 12:04) Chest 1 View, Ap/Pa Only (02/24/19 12:04) Ekg Tracing (02/24/19 12:04) Ed Iv/Invasive Line Start (02/24/19 12:04) Monitor-Rhythm Ecg Trace Only (02/24/19 12:04) Cbc With Automated Diff (02/24/19 12:04) Comprehensive Metabolic Panel (02/24/19 12:04) Thyroid Stimulating Hormone (02/24/19 12:04) Ed Iv/Invasive Line Start (02/24/19 12:06) Ns Iv 1000 Ml (Sodium Chloride 0.9%) (02/24/19 12:06) Diltiazem Injection (Cardizem Injection) (02/24/19 12:15) Ns (Ivpb) (Sodium C... W/Diltiazem Iv Fo (02/24/19 12:15) Apixaban Tablet (Eliquis Tablet) (02/24/19 13:15) Medications Given in ED Current Medications Medications Dose Ordered Sig/Love Route Start Time Stop Time Status Last Admin Dose Admin Apixaban 5 mg ONCE ONCE PO 02/24/19 13:15 02/24/19 13:16 DC 02/24/19 13:11 5 MG Aspirin 324 mg ONCE ONCE PO 02/24/19 12:15 02/24/19 12:16 DC 02/24/19 12:17 324 MG Diltiazem HCl 20 mg ONCE ONCE IVP 02/24/19 12:15 02/24/19 12:16 DC 02/24/19 12:18 20 MG Vital Signs/I&O 02/24/19 02/24/19 11:51 12:28 Temp 98.1 Pulse 138 63 Resp 16 12 B/P (MAP) 139/84 (102) 104/59 Pulse Ox 96 94 O2 Delivery Room Air Progress Progress Note : Time: 12:54 Progress Note The patient presents in atrial flutter with rapid ventricular response ranging from 140-160 bpm. She is asymptomatic per her own history. We will give her a bolus of fluids and 20 mg of IV Cardizem which brought her heart rate down upper 50s to 60s in a sinus rhythm. She says she is having palpitations, racing heart and symptomatic episodes of weakness for several months so this is normal onset but likely not first time she's had atrial flutter. In the previous labs she's had the acute kidney injuries with GFR of 22 but today her GFR is 51 so she would be a candidate for Eliquis. We had a long discussion about the risks, benefits and alternatives to anticoagulation and she consents to use these medications. Initial ECG Impression Date: Feb 24, 2019 Initial ECG Impression Time: 12:00 Initial ECG Rate: 139 Initial ECG Rhythm: A Fib/Flutter Initial ECG Intervals: QT (469) Initial ECG Impression: Atrial Fibrillation w/RVR Initial ECG Comparisson: No Previous ECG Available Comment Atrial flutter with rapid ventricular response. Diagnostic Imaging Diagonstic Imaging: Xray Plain Films/CT/US/NM/MRI: chest Comments [facility] [employer] [place], [place] NAME: CHEMA CORRALES [facility] REC#: [id number] PT STATUS: REG ER : 1945 PHYSICIAN: IESHA DOLL MD ADMIT DATE: 02/24/19/ER Draft Date of Exam:02/24/19 CHEST 1 VIEW, AP/PA ONLY INDICATION: Atrial fibrillation. COMPARISON: None. FINDINGS: Single frontal view of the chest demonstrates normal heart size and pulmonary vascularity. The lungs are well aerated and clear. No large pleural effusion or pneumothorax is seen. The visualized osseous structures show no acute abnormalities. IMPRESSION: 1. No acute cardiopulmonary process. Dictated on workstation # [id number] Dict: 02/24/19 1249 Trans: 02/24/19 1250 [id number] Interpreted by: TRESSA DYER MD Electronically signed by: Reviewed: Reviewed by Me Consults : Consulting Physician: RICHIE URIARTE MD Consults Notes Discussed the case and how she has converted back to sinus rhythm. He will come see the patient in the ER and will try and set her up for outpatient follow-up. We'll give her the Eliquis since her creatinine is okay today. Dr. Uriarte has met with the patient and overall XL and Eliquis. He plans to send a prescription some self. She performed a bedside echocardiogram and reviewed it and she has some moderate to severe tricuspid regurg but pulmonary artery pressure 30 mmHg and no evidence of clot or atrial enlargement. He will follow her up in the clinic next week. Departure Impression Primary Impression: Atrial fibrillation with rapid ventricular response Disposition: HOME, SELF-CARE Condition: Improved Departure-Patient Inst. Decision time for Depature: 13:01 Referrals: JENNYFER PENG (PCP/Family) Primary Care Physician Patient Instructions: Atrial Fibrillation (DC) Add. Discharge Instructions: Take the Eliquis one capsule twice a day. If you have significant bleeding, chest pain, shortness of breath or other worrisome symptoms please return to the ER for evaluation. Keep your follow-up appointment with Dr. Uriarte, cardiology. All discharge instructions reviewed with patient and/or family. Voiced understanding. Scripts Apixaban (Eliquis) 5 Mg Tablet 5 MG PO BID for 30 Days, #30 TAB 0 Refills Prov: IESHA DOLL 02/24/19 IESHA DOLL Feb 24, 2019 12:17
[2019-02-24 12:18] LABS: BASOPHILS # (AUTO) 0.1 10^3/uL (0.0-0.1); BASOPHILS % (AUTO) 1 % (0-10); EOSINOPHILS # (AUTO) 0.4 10^3/uL (0.0-0.3); EOSINOPHILS % (AUTO) 3 % (0-10); HEMATOCRIT 39 % (35-52); HEMOGLOBIN 12.5 G/DL (11.5-16.0); LYMPHOCYTES # (AUTO) 1.8 X 10^3 (1.0-4.0); LYMPHOCYTES % (AUTO) 16 % (12-44); MEAN CORPUSCULAR HEMOGLOBIN 27 PG (25-34); MEAN CORPUSCULAR HGB CONC 33 G/DL (32-36); MEAN CORPUSCULAR VOLUME 82 FL (80-99); MEAN PLATELET VOLUME 10.4 FL (7.4-10.4); MONOCYTES # (AUTO) 0.7 X 10^3 (0.0-1.0); MONOCYTES % (AUTO) 7 % (0-12); NEUTROPHILS # (AUTO) 8.1 X 10^3 (1.8-7.8); NEUTROPHILS % (AUTO) 73 % (42-75); PLATELET COUNT 407 10^3/uL (130-400); RED CELL DISTRIBUTION WIDTH 17.9 % (10.0-14.5)
[2019-02-24 12:36] LABS: ALBUMIN 4.3 GM/DL (3.2-4.5); BILIRUBIN,TOTAL 0.4 MG/DL (0.1-1.0); CALCIUM 10.1 MG/DL (8.5-10.1); CREATININE SERUM 1.06 MG/DL (0.60-1.30); TOTAL PROTEIN 7.9 GM/DL (6.4-8.2)
--- NOTE | 2019-02-24 12:51 | Diagnostic Imaging Report ---
INDICATION: Atrial fibrillation. COMPARISON: None. FINDINGS: Single frontal view of the chest demonstrates normal heart size and pulmonary vascularity. The lungs are well aerated and clear. No large pleural effusion or pneumothorax is seen. The visualized osseous structures show no acute abnormalities. IMPRESSION: 1. No acute cardiopulmonary process. Dictated by: Dictated on workstation # [id number]
--- NOTE | 2019-02-24 13:00 | NUR ---
VERBAL ORDER TO STOP CARDIZEM DRIP
[2019-02-24] MEDS ORDERED: APIX5TAB PO ×2 (13:03→14:04)
[2019-02-24] MEDS ORDERED: APIXABAN 5 MG (ELIQUIS) TABLET PO ONE (13:15)
[2019-02-24] MEDS ORDERED: ASPI-808 (13:29)
[2019-02-24] MEDS ORDERED: NYST1000 (13:29)
[2019-02-24] MEDS ORDERED: ALPR1TAB7 (13:29)
[2019-02-24] MEDS ORDERED: LINA5TAB (13:29)
[2019-02-24] MEDS ORDERED: ALLO100T (13:29)
[2019-02-24] MEDS ORDERED: AMLO5TAB9 (13:29)
[2019-02-24] MEDS ORDERED: BETA1TAB15 (13:29)
[2019-02-24] MEDS ORDERED: LEVO75TA6 (13:29)
[2019-02-24] MEDS ORDERED: OMEP20CA12 (13:29)
[2019-02-24] MEDS ORDERED: LISI1TAB6 (13:29)
[2019-02-24] MEDS ORDERED: HYDR-3820 (13:29)
--- NOTE | 2019-02-24 13:37 | Consultation-Cardiology ---
HPI-Cardiology Cardiology Consultation Date of Consultation 02/24/19 Date of Admission Time Seen by Provider: 13:32 Indication: afib with RVR HPI Patient is a 73 y/o female with history of HTN, HLP, DM, SHLOMO, tobaccoism. Complaining of palpitations and increased fatigue over the past week. Patient had EKG and Holter monitor ordered by her PCP as outpatient. EKG done revealed AFib with RVR. Patient was sent to ER. Converted to SR on Cardizem gtt. Currently in SR. Denies any chest pain, dyspnea, dizziness or lightheadedness. States underwent cardiac catheterization done approx [address] Emerson in [facility], reports it to be normal. Has been noncompliant with her CPAP machine recently. 73 years old lady with history of 73 years old lady with history of hypertension, hyperlipidemia, diabetes and sleep apnea. Patient started to have palpitation, sent to the emergency room and seen to be in atrial fibrillation with rapid ventricular response, started on the Cardizem drip and converted to s inus rhythm. Currently feeling better. Reporting mild chest discomfort. No palpitation syncope or near syncopal episode at this time. Home Medications & Allergies Allergies: Coded Allergies: ANGEL Inhibitors (Verified Allergy, Unknown, Angioedema, 02/24/19) Home Medication List Reviewed: Yes medication list reviewed [id number]-Waqeto Hx Patient Social History Alcohol Use: Denies Use Recreational Drug Use: No Smoking Status: Current Everyday Smoker Type Used: Cigarettes Recent Foreign Travel: No Recent Infectious Disease Expo: No Recent Hopitalizations: No Immunizations Up To Date Date of Pneumonia Vaccine: Jun 21, 2012 Date of Influenza Vaccine: Jun 21, 2012 Past Medical History HTN, HLP, DM, Hypothyoidism, SHLOMO Family Medical History Significant Family History: CAD Under 55 Years Old Review of Systems-General Review of Systems Constitutional: No chills, No diaphoresis; malaise, weakness EENTM: No blurred vision, No double vision, No vision loss, No epistaxis, No nose congestion, No nose pain, No throat pain, No throat swelling Respiratory: No cough, No dyspnea on exertion, No orthopnea, No wheezing Cardiovascular: No chest pain, No Hx of Intervention; palpitations; No vascular heart diseas Gastrointestinal: No abdominal pain, No constipation Genitourinary: No dysuria, No frequency, No hematuria Musculoskeletal: No back pain, No joint pain Skin: No lesions, No rash Psychiatric/Neurological: Denies Anxiety, Denies Depressed Reviewed Test Results Reviewed Test Results Lab Laboratory Tests 02/24/19 12:09: White Blood Count 11.0, Red Blood Count 4.70, Hemoglobin 12.5, Hematocrit 39, Mean Corpuscular Volume 82, Mean Corpuscular Hemoglobin 27, Mean Corpuscular Hemoglobin Concent 33, Red Cell Distribution Width 17.9H, Platelet Count 407H, Mean Platelet Volume 10.4, Neutrophils (%) (Auto) 73, Lymphocytes (%) (Auto) 16, Monocytes (%) (Auto) 7, Eosinophils (%) (Auto) 3, Basophils (%) (Auto) 1, Neutrophils # (Auto) 8.1H, Lymphocytes # (Auto) 1.8, Monocytes # (Auto) 0.7, Eosinophils # (Auto) 0.4H, Basophils # (Auto) 0.1, Sodium Level 142, Potassium Level 4.0, Chloride Level 106, Carbon Dioxide Level 23, Anion Gap 13, Blood Urea Nitrogen 16, Creatinine 1.06, Estimat Glomerular Filtration Rate 51, BUN/Crea tinine Ratio 15, Glucose Level 124H, Calcium Level 10.1, Corrected Calcium 9.9, Total Bilirubin 0.4, Aspartate Amino Transf (AST/SGOT) 18, Alanine Aminotransferase (ALT/SGPT) 15, Alkaline Phosphatase 173H, Troponin I 0.028, Total Protein 7.9, Albumin 4.3, Thyroid Stimulating Hormone (TSH) 2.55 ECG Impression ECG Initial ECG Rhythm: A Fib/Flutter Initial ECG Impression: Atrial Fibrillation w/RVR Physical Exam Physical Exam Vital Signs Vital Signs - First Documented 02/24/19 02/24/19 11:51 12:28 Temp 98.1 Pulse 138 Resp 16 B/P (MAP) 139/84 (102) Pulse Ox 96 O2 Delivery Room Air Capillary Refill : Less Than 3 Seconds Height, Weight, BMI Height: 5'2.00" Weight: 145lbs. 0.0oz. 65.216894ho; 26.5 BMI Method:Stated General Appearance: No Apparent Distress, WD/WN HEENT: PERRL/EOMI, Pharynx Normal, Moist Mucous Membranes Neck: Full Range of Motion, Normal Inspection Respiratory: Lungs Clear, Normal Breath Sounds, No Accessory Muscle Use, No Respiratory Distress Cardiovascular: Regular Rate, Rhythm, No Edema, No JVD, No Murmur, Normal Peripheral Pulses Gastrointestinal: Normal Bowel Sounds, Non Tender, Soft Back: No CVA Tenderness Extremity: No Pedal Edema Neurologic/Psychiatric: Alert, Oriented x3, rn case management II-XII Norm as Tested A/P-Cardiology Admission Diagnosis Afib with RVR HTN HLP DM Assessment/Plan Paroxysmal atrial fibrillation, converted to sinus rhythm, I will start the patient on Toprol-XL 25 mg daily and Eliquis and continue to monitor Tachycardia, resolved on Cardizem drip, converted to sinus rhythm. Hypertension, has been on Norvasc, I instructed her to stop Norvasc and start her on Toprol-XL 25 mg daily. Hyperlipidemia, monitor lipids History of sleep apnea, no recent checkup. Chest pain nonspecific etiology, mainly secondary to tachycardia, had a cardiac catheterization done about 5 years ago reported to have normal coronaries. I'll try to obtain copy of the results I interviewed and examined the patient with Ashlee. I used Italic font for my note, I agree with the scribed notes, I will see the patient in my office. ASHLEE CUMMINGS Feb 24, 2019 13:37 RICHIE COLON MD Feb 24, 2019 14:05
[2019-02-24 13:56] VITALS: BP 115/59
[2019-02-24] MEDS ORDERED: METO-352 PO (14:04)
--- OUTSIDE RECORDS SUMMARY | 2019-02-24 17:52 | XMS REPORT | Continuity of Care Document ---
Author Organization Unknown Address Unknown Allergies Active Description Code Type Severity Reaction Onset Reported/Identified Relationship to Patient Clinical Status Yes PAXIL MODERATE OTHER Yes No Known Drug Allergies [id number] Drug Allergy Unknown N/A 02/18/2019 Yes ANGEL Inhibitors [id number] Drug Allergy Unknown Angioedema 02/19/2019 Medications There [...] S92.151A DISPL AVULSION FRACTURE (CHIP FRACTURE) 10/26/2017 [facility] FABIOLA K Ot W10.9XXA FALL (ON) (FROM) UNSPECIFIED STAIRS AND 10/26/2017 [facility] FABIOLA Roscoe Ot Z79.84 MANAGER COMMUNITY DEVELOPMENT (CURRENT) USE OF ORAL HYPOGLYC [facility] Z87.19 PERSONAL HISTORY OF OTHER DISEASES OF TH 10/26/2017 [facility] FABIOLA K Ot Z90.49 ACQUIRED ABSENCE OF OTHER SPECIFIED PART 10/26/2017 [facility] K Ot Z90.710 ACQUIRED ABSENCE OF BOTH CERVIX AND UTER 10/28[facility] E03.9 HYPOTHYROIDISM, UNSPECIFIED 10/28/2017 [facility] K Ot E11.9 TYPE 2 DIABETES MELLITUS WITHOUT COMPLIC 10/28/2017 [facility] K Ot E78.00 PURE HYPERCHOLESTEROLEMIA, UNSPECIFIED 10/28/2017 [facility] K Ot F17.210 NICOTINE DEPENDENCE, CIGARETTES, UNCOMPL 10/28/2017 [facility] K Ot F32.9 MAJOR DEPRESSIVE DISORDER, SINGLE EPISOD 10/28/2017 [facility] K Ot F41.9 ANXIETY DISORDER, UNSPECIFIED 10/28/2017 [facility] K Ot G47.30 SLEEP APNEA, UNSPECIFIED 10/28/2017 [facility] FABIOLA K Ot I10 ESSENTIAL (PRIMARY) HYPERTENSION 10/28/2017 [facility] K Ot M25.571 PAIN IN RIGHT ANKLE AND JOINTS OF RIGHT 10/28/[facility] S92.151A DISPL AVULSION FRACTURE (CHIP FRACTURE) 10/28/2017 [facility] FABIOLA K Ot W10.9XXA FALL (ON) (FROM) UNSPECIFIED STAIRS AND 10/28/2017 [facility] Roscoe Ot Z79.84 HALF-WAY (CURRENT) USE OF ORAL HYPOGLYC 10/28/2017 [facility] K Ot Z87.19 PERSONAL HISTORY OF OTHER DISEASES OF TH 10/28/2017 [facility] K Ot Z90.49 ACQUIRED ABSENCE OF OTHER SPECIFIED PART 10/28/2017 [facility] K Ot Z90.710 ACQUIRED ABSENCE OF BOTH CERVIX AND UTER 02/08/2018 [facility] KAPLAN DO Ot E03.9 HYPOTHYROIDISM, UNSPECIFIED 02/08/2018 [facility] FABI[facility] Malhotra Ot E11.9 TYPE 2 DIABETES MELLITUS WITHOUT COMPLIC 02/08/2018 [facility] FABIOL[facility] Malhotra Ot E78.00 PURE HYPERCHOLESTEROLEMIA, UNSPECIFIED 02/08/2018 [facility] FABIOLA Malhotra Ot F32.9 MAJOR DEPRESSIVE DISORDER, SINGLE EPISOD 02/08/2018 [facility] FABIOL[facility] Malhotra Ot F41.9 ANXIETY DISORDER, UNSPECIFIED 02/08/2018 [facility] FABIOLA Malhotra Ot G47.30 SLEEP APNEA, UNSPECIFIED 02/08/2018 [facility] FABIOLA Malhotra Ot I10 ESSENTIAL (PRIMARY) HYPERTENSION 02/08/2018 [facility] FABIOL[facility] Roscoe Ot M25.562 PAIN IN LEFT KNEE 02/08/2018 [facility] FABIOL[facility] Roscoe Ot S83.92XA SPRAIN OF UNSPECIFIED SITE OF LEFT KNEE, 02/08/2018 [facility] FABIOLA Malhotra Ot X50.0XXA OVEREXERTION FROM STRENUOUS MOVEMENT OR 02/08/2018 [facility] FABIOLA Malhotra Ot Z79.84 MANAGER COMMUNITY DEVELOPMENT (CURRENT) USE OF ORAL HYPOGLYC 02/08/2018 [facility] [...] Malhotra Ot F41.9 ANXIETY DISORDER, UNSPECIFIED 02/10/2018 [facility] FABIOLA Malhotra Ot G47.30 SLEEP APNEA, UNSPECIFIED 02/10/2018 FABIOLA KAPLAN DO Ot I10 ESSENTIAL (PRIMARY) HYPERTENSION 02/10/2018 FABIOL[facility] KAPLAN DO Ot M25.562 PAIN IN LEFT KNEE 02/10/2018 FABIOLA KAPLAN DO Ot S83.92XA SPRAIN OF UNSPECIFIED SITE OF LEFT KNEE, 02/10/2018 FABIOLA KAPLAN DO Ot X50.0XXA OVEREXERTION FROM STRENUOUS MOVEMENT OR 02/10/2018 FABI[facility]A KAPLAN DO Ot Z79.84 MANAGER COMMUNITY DEVELOPMENT (CURRENT) USE OF ORAL HYPOGLYC 02/10/2018 FABI[facility] KAPLAN DO Ot Z87.19 PERSONAL HISTORY OF OTHER DISEASES OF TH 02/10/2018 FABI[facility] KAPLAN DO Ot Z90.49 ACQUIRED ABSENCE OF OTHER SPECIFIED PART 02/10/2018 FABIOLA KAPALN DO Ot Z90.710 ACQUIRED ABSENCE OF BOTH CERVIX AND UTER 02/10/2018 FABIOLA KAPLAN DO Ot Z98.890 OTHER SPECIFIED POSTPROCEDURAL STATES 03/30/2018 Yaima Peng W 244.9 UNSPECIFIED HYPOTHYROIDISM 03/30/2018 Hali, Yaima W 250.00 DIABETES MELLITUS WITHOUT MENTION OF COMPLICATION, TYPE II OR UNSPECIFIED TYPE, NOT STATED UNCONTROLLED 03/30/2018 Hali Yaima W 272.8 OTHER DISORDERS OF LIPOID METABOLISM 03/30/2018 [facility] Yaima W 401.9 UNSPECIFIED ESSENTIAL HYPERTENSION 03/30/2018 Hali, Yaima W E03.9 HYPOTHYROIDISM, UNSPECIFIED 03/30/2018 Hali, Yaima W E11.9 TYPE 2 DIABETES MELLITUS WITHOUT COMPLICATIONS 03/30/2018 Yaima Peng W E78.5 HYPERLIPIDEMIA, UNSPECIFIED 03/30/2018 Hali Yaima [...] W D50.9 IRON DEFICIENCY ANEMIA, UNSPECIFIED 08/27/2018 Pindea, Littel-Marta W I10 ESSENTIAL (PRIMARY) HYPERTENSION 08/27/2018 Pineda, [...] - 10/30/17 13:44 Surg Path Sent to [facility] Thyroid Stimulating Hormone - 03/30/18 10:30 [...] measurement by glucometer (mass/volume) 205 mg/dL 70-110 Complete blood count (CBC) with automated white blood cell (WBC) differential - 02/24/19 12:09 Blood leukocytes automated count (number/volume) 11.0 10*3/uL 4.3-11.0 Blood erythrocytes automated count (number/volume) 4.70 10*6/uL 4.35-5.85 Venous blood hemoglobin measurement (mass/volume) 12.5 g/dL 11.5-16.0 Blood hematocrit (volume fraction) 39 % 35-52 Automated erythrocyte mean corpuscular volume 82 [foz_us] 80-99 Automated erythrocyte mean corpuscular hemoglobin (mass per erythrocyte) 27 pg 25-34 Automated erythrocyte mean corpuscular hemoglobin concentration measurement (mass/volume) 33 g/dL 32-36 Automated erythrocyte distribution width ratio 17.9 % 10.0- 14.5 Automated blood platelet count (count/volume) 407 10*3/uL 130-400 Automated blood platelet mean volume measurement 10.4 [foz_us] 7.4-10.4 Automated blood neutrophils/100 leukocytes 73 % 42-75 Automated blood lymphocytes/100 leukocytes 16 % 12-44 Blood monocytes/100 leukocytes 7 % 0-12 Automated blood eosinophils/100 leukocytes 3 % 0-10 Automated blood basophils/100 leukocytes 1 % 0-10 Blood neutrophils automated count (number/volume) 8.1 10*3 1.8-7.8 Blood lymphocytes automated count (number/volume) 1.8 10*3 1.0-4.0 Blood monocytes automated count (number/volume) 0.7 10*3 0.0- 1.0 Automated eosinophil count 0.4 10*3/uL 0.0-0.3 Automated blood basophil count (count/volume) 0.1 10*3/uL 0.0-0.1 Comprehensive metabolic panel - 02/24/19 12:09 Serum or plasma sodium measurement (moles/volume) 142 mmol/L 135-145 Serum or plasma potassium measurement (moles/volume) 4.0 mmol/L 3.6-5.0 Serum or plasma chloride measurement (moles/volume) 106 mmol/L 98-107 Carbon dioxide 23 mmol/L 21-32 Serum or plasma anion gap determination (moles/volume) 13 mmol/L 5-14 Serum or plasma urea nitrogen measurement (mass/volume) 16 mg/dL 7-18 Serum or plasma creatinine measurement (mass/volume) 1.06 mg/dL 0.60-1.30 Serum or plasma urea nitrogen/creatinine mass ratio 15 NRG Serum or plasma creatinine measurement with calculation of estimated glomerular filtration rate 51 NRG Serum or plasma glucose measurement (mass/volume) 124 mg/dL 70-105 Serum or plasma calcium measurement (mass/volume) 10.1 mg/dL 8.5-10.1 Serum or plasma total bilirubin measurement (mass/volume) 0.4 mg/dL 0.1-1.0 Serum or plasma alkaline phosphatase measurement (enzymatic activity/volume) 173 U/L 40-136 Serum or plasma aspartate aminotransferase measurement (enzymatic activity/volume) 18 U/L 5-34 Serum or plasma alanine aminotransferase measurement (enzymatic activity/volume) 15 U/L 0-55 Serum or plasma protein measurement (mass/volume) 7.9 g/dL 6.4-8.2 Serum or plasma albumin measurement (mass/volume) 4.3 g/dL 3.2-4.5 CALCIUM CORRECTED 9.9 mg/dL 8.5-10.1 Serum or plasma troponin i.cardiac measurement (mass/volume) - 02/24/19 12:09 Serum or plasma troponin i.cardiac measurement (mass/volume) 0.028 ng/mL <0.028 THYROID STIMULATING HORMONE - 02/24/19 12:09 THYROID STIMULATING HORMONE 2.55 u[iU]/mL 0.35-4.94 Encounters ACCT No. Visit Date/Time Discharge Status Pt. Type Provider Facility Loc./Unit Complaint [id number] 02/18/2019 22:34:00 02/19/2019 14:40:00 DIS Inpatient AZAEL MENDEZ DO [facility] ICU ANGIOEDEMA OF TONGUE;ANGEL INHIBITOR USE [id number] 02/08/2018 20:48:00 02/08/2018 21:57:00 DIS Emergency FABIOLA KAPLAN DO [facility] ER LEFT KNEE PAIN [id number] 10/26/2017 14:53:00 10/26/2017 16:27:00 DIS Emergency FABIOLA KAPLAN DO [facility] ER FALL/R FOOT INJ [id number] 06/15/2013 13:41:00 06/15/2013 14:40:00 DIS Outpatient JONE MANLEY MD [facility] REHAB R KNEE AND HIP PAIN [id number] 02/24/2019 12:19:00 Document Registration [id number] 02/24/2019 09:45:00 PEN Preadmit JENNYFER PENG [facility] CARD HEART PALPITATIONS,HTN [id number] 09/03/2012 14:55:00 Document Registration [id number] 08/27/2018 15:19:00 08/27/2018 23:59:00 DIS Outpatient Mayo Pineda [id number] 07/20/2018 13:22:00 07/20/2018 23:59:00 DIS Outpatient Yaima Peng [id number] 04/02/2018 14:41:00 04/02/2018 23:59:00 DIS Outpatient Yaima Peng [id number] 03/31/2018 14:34:00 03/31/2018 23:59:00 DIS Outpatient Yaima Peng [id number] 03/30/2018 13:03:00 03/30/2018 23:59:00 DIS Outpatient Yaima Peng [id number] 10/30/2017 15:44:00 10/30/2017 23:59:00 DIS Outpatient Mayo Pineda [id number] 08/28/2017 12:50:00 08/28/2017 23:59:00 DIS Outpatient Yaima Peng [id number] 10/23/2016 07:31:00 10/23/2016 07:31:00 CAN Outpatient Jone Manley [id number] 10/22/2016 19:13:00 10/22/2016 23:59:00 DIS Outpatient Jone Manley
== END 2019-02-24 13:59 | disposition home or self-care (01) ==
LOC: EDUNIT# 11:51 → ER 11:52
DX: I48.91 Unspecified atrial fibrillation (principal); G47.30 Sleep apnea, unspecified; E78.00 Pure hypercholesterolemia, unspecified; E11.22 Type 2 diabetes mellitus with diabetic chronic kidney disease; I12.9 Hypertensive chronic kidney disease with stage 1 through stage 4 chronic kidney disease, or unspecified chronic kidney disease; N18.9 Chronic kidney disease, unspecified; E03.9 Hypothyroidism, unspecified; F41.9 Anxiety disorder, unspecified; F32.9 Major depressive disorder, single episode, unspecified; K21.9 Gastro-esophageal reflux disease without esophagitis; M06.9 Rheumatoid arthritis, unspecified; F17.210 Nicotine dependence, cigarettes, uncomplicated; Z88.8 Allergy status to other drugs, medicaments and biological substances; Z78.0 Asymptomatic menopausal state; Z87.19 Personal history of other diseases of the digestive system; Z86.14 Personal history of Methicillin resistant Staphylococcus aureus infection; Z79.01 Long term (current) use of anticoagulants; Z79.84 Long term (current) use of oral hypoglycemic drugs; Z90.49 Acquired absence of other specified parts of digestive tract; Z90.710 Acquired absence of both cervix and uterus; Z98.890 Other specified postprocedural states
CPT/HCPCS: 36415; 71045; 80053; 84443; 84484; 85025; 93005; 93041; 93306; 96361; 96365

== ENCOUNTER → 2019-04-27 | Outpatient (CLI) | payer MEDICARE, OTHER ==
[~2019-04-27] MED LIST changes: +ALLO100T; +ALPR1TAB7; +AMLO5TAB9; +APIX5TAB PO; +ASPI-808; +BETA1TAB15; +CATHETER FLUSH 10 ML SYR IV PRN; +HYDR-3820; +LEVO75TA6; +LINA5TAB; +LISI1TAB6; +METO-352 PO; +NYST1000; +OMEP20CA13; +REGADENOSON 0.4 MG/5 ML SYR (LEXISCAN) IV ONE
[2019-04-27 14:05] VITALS: BP 178/60
--- NOTE | 2019-04-28 00:24 | STRESS TEST ---
DATE OF SERVICE: 04/27/2019 LEXISCAN MYOVIEW STRESS TEST REFERRING PHYSICIAN: LINDSAY Hillman Baseline heart rate is 62. Baseline blood pressure 167/86. Baseline EKG is sinus rhythm with no EKG changes. In summary, the patient was injected with 9.16 mCi of technetium-99 Myoview and the resting images were obtained. Then, the patient started exercising with a baseline heart rate, blood pressure and EKG mentioned above. After 3 minutes and 50 seconds, the patient was unable to perform any further. Test was terminated and converted to Lexiscan Myoview stress test. The patient received 0.4 mg of Lexiscan followed by 27.3 mCi of technetium-99 Myoview. Throughout the test, there were no EKG changes. The resting and stress images were reviewed and compared in the short axis, horizontal long axis, and vertical long axis views. Review of the images showed good radiotracer uptake with no significant ischemia or infarction. SSS is 1, SDS 1, TID value 1.0. On the gated images, the left ventricle appeared to be in normal size with normal contractility. Calculated ejection fraction 64%. CONCLUSION: 1. The patient was unable to tolerate exercise beyond 3 minutes and 49 seconds achieving 65% of maximum expected heart rate. Test was terminated and converted to Lexiscan Myoview stress test, the patient tolerated Lexiscan well. 2. No ischemia or infarction on SPECT images. 3. Normal left ventricular size with normal contractility. Calculated ejection fraction 64%. Job ID: [id number] DocumentID: [id number] Dictated Date: 04/27/2019 19:54:57 Rfid Specialist Date: 04/28/2019 00:23:33 Dictated By: RICHIE COLON MD
== END ==
LOC: CARD 11:45
PROVIDERS: ATTEND Physician Assistant
DX: I11.9 Hypertensive heart disease without heart failure (principal); E11.9 Type 2 diabetes mellitus without complications; E78.2 Mixed hyperlipidemia; G47.33 Obstructive sleep apnea (adult) (pediatric); I48.0 Paroxysmal atrial fibrillation; Z72.0 Tobacco use
CPT/HCPCS: 78452; 93017

== ENCOUNTER → 2019-06-10 | Outpatient (CLI) | payer MEDICARE, OTHER ==
[~2019-06-10] MED LIST changes: -CATHETER FLUSH 10 ML SYR IV PRN; -REGADENOSON 0.4 MG/5 ML SYR (LEXISCAN) IV ONE
[2019-06-10 14:24] LABS: ABSOLUTE RETIC # 73 10e9/L (24-90); RETICULOCYTE % 2.35 % (0.50-2.40)
[2019-06-10 15:01] LABS: BAND NEUTROPHILS 1 %; BASOPHILS % (MANUAL) 2 %; EOSINOPHILS % (MANUAL) 8 %; LYMPHOCYTES % (MANUAL) 13 %; MONOCYTES % (MANUAL) 3 %; NEUTROPHILS % (MANUAL) 73 %
[2019-06-10 15:02] LABS: ANISOCYTOSIS SLIGHT; ELLIPT/OVALOCYTES SLIGHT
== END ==
LOC: LABNPT 14:10
PROVIDERS: ATTEND Registered Nurse
DX: D64.9 Anemia, unspecified (principal)
CPT/HCPCS: 85007; 85045

== ENCOUNTER 2019-07-21 08:51 | Outpatient (RCR) | payer MEDICARE, OTHER ==
[~2019-07-21 08:51] MED LIST changes: +LISI1TAB29; -LISI1TAB6; +OMEP-280; -OMEP20CA13
== END 2019-10-19 | disposition home or self-care (01) ==
LOC: CARD 08:51
PROVIDERS: ATTEND Physician Assistant
DX: E11.9 Type 2 diabetes mellitus without complications (principal); I11.9 Hypertensive heart disease without heart failure; E78.2 Mixed hyperlipidemia; G47.33 Obstructive sleep apnea (adult) (pediatric); I51.89 Other ill-defined heart diseases

== ENCOUNTER 2019-09-24 19:30 | Emergency (ER) | payer MEDICARE, OTHER ==
[~2019-09-24] VITALS: Ht 160 cm; Wt 95.2 kg
[~2019-09-24 19:30] MED LIST changes: -LISI1TAB29; +LISI1TAB6; -OMEP-280; +OMEP20CA13
[2019-09-24] MEDS ORDERED: ETOMIDATE IV SOLN 20 MG/10 ML VIAL IV ONE (19:32)
[2019-09-24] MEDS ORDERED: ROCURONIUM 10 MG/ML 5 ML SYRINGE IV ONE (19:32)
[2019-09-24] MEDS ORDERED: ATROPINE INJECTION 1 MG/10 ML SYR (ABBOTT) INJ ONE (19:32)
[2019-09-24] MEDS ORDERED: NS IV 1000 ML 1,000 ML IV STA (19:39)
[2019-09-24] MEDS ORDERED: NS IV 1000 ML 1,000 ML IV SCH (19:41)
[2019-09-24] MEDS ORDERED: ONDANSETRON 4 MG/2 ML (SDV) Z0FRAN IVP ONE ×2 (19:45→20:45)
--- NOTE | 2019-09-24 19:53 | ED General ---
General Stated Complaint: LBP Source of Information: Patient, EMS History of Present Illness Date Seen by Provider: Sep 24, 2019 Time Seen by Provider: 19:28 Initial Comments PT ARRIVES VIA [facility] FROM HOME NO TREATMENT BY EMS EMS REPORT THAT THEY WERE CALLED BY FAMILY [facility]BERS FOR PT "NOT DOING WELL" WITHOUT ANY SPECIFIC SYMPTOMS EMS REPORT THAT PT'S BP WAS 70/50, HR 48, NO OTHER VITALS GIVEN TO ER STAFF,AND NO OTHER INFORMATION GIVEN BY EMS PT STATES SHE FELL 1 WEEK AGO--WAS STANDING ON TOP OF A 3 STEP LADDER, AND DOES NOT KNOW WHAT HAPPENED, BUT SHE FELL OFF THE LADDER AND LANDED ON THE FLOOR AND STRUCK A LANTERN ON THE FLOOR, HITTING HER LEFT SIDE--LEFT RIBS/FLANK AREA. THIS WAS NOT WITNESSED AND PT DID NOT REPORT THIS INJURY TO ANYONE. PT DENIES HITTING HER HEAD OR HAVING ANY LOSS OF CONSCIOUSNESS AT THAT TIME DENIES ANY NECK OR SPINE PAIN, AND DENIES ANY HIP OR LEG PAIN FROM THAT INJURY PT FELL AGAIN THIS AM, AROUND 11:00--STATES SHE WAS GETTING ON THE TOILET, AND "SLID OFF" AND HIT HER RIGHT SIDE/ RIBS AND FLANK AREA ON A TRASH CAN THIS EPISODE WAS NOT WITNESSED EITHER, AND PT DID NOT REPORT THIS INCIDENT TO ANYONE AT THE TIME PT DENIES HITTING HER HEAD OR HAVING ANY LOSS OF CONSCIOUSNESS DENIES ANY NECK OR SPINE PAIN, AND DENIES ANY HIP OR LEG PAIN FROM THAT INJURY PT HAS RX FOR HYDROCODONE 10 MG, AND HAS BEEN TAKING THEM OVER THE PAST WEEK, AFTER HER INITIAL FALL. LAST DOSE WAS AT 1500 TODAY PT DROVE HERSELF TO [place] AND BACK TODAY, AFTER FALLING THIS MORNING, AND WAS ABLE TO GET UP HER STEPS AND INTO THE HOUSE. HOWEVER, AFTER SHE WAS IN THE HOUSE, SHE WAS TOO WEAK TO GET UP THE STEPS INSIDE OF HER HOUSE AND CALLED FAMILY. PT IS ACTIVELY VOMITING AND DRY HEAVING ON ARRIVAL STATES SHE BEGAN HAVING NAUSEA AND VOMITING SOMETIME THIS EVENING. PT DENIES ANY ACTUAL CHEST PAIN OR SHORTNESS OF BREATH--ONLY C/O BILATERAL RIB AND FLANK PAIN PT DENIES PARESTHESIAS OR MOTOR DEFICITS NO HEADACHE NO DIZZINESS PT IS ON ELIQUIS FOR CHRONIC ATRIAL FIBRILLATION, AND TOOK THIS AM'S DOSE. PT IS DIABETIC, AND HAS BEEN ON TRAJENTA AND METFORMIN FOR A LONG TIME, BUT STATES THAT HER WELDER APPRENTICE GAS Luisito PENG STOPPED BOTH OF THEM A WEEK AGO, "BECAUSE HER BLOOD SUGARS WERE DOING GOOD AND WERE DOWN TO THE 80'S" PT HAS NOT CHECKED HER BLOOD SUGAR TODAY, AND NOT CHECKED BY EMS ACCUCHECK 167 ON ARRIVAL TO ER ON REVIEW OF OLD RECORDS, PT HAS HAD MULTIPLE VISITS FOR VARIOUS FALLS, VARIOUS INJURIES/COMPLAINTS DUE TO FALLING. PT HAD OUTPATIENT LAB 08/22/2019 WITH HGB 8.2, HBG WAS 12.5 ON 02/24/19 GRANDDAUGHTERS ARRIVE AND REPORT THAT PT HAS BEEN HAVING RECENT ISSUES WITH ANEMIA AND HAS HAD OUTPATIENT BLOOD TRANSFUSIONS, BUT HAS NOT SEEN ANY SPECIALISTS FOR THIS PROBLEM--NO GI WORKUP, BUT DOES HAVE FIRST APPOINTMENT WITH RESIDENTIAL SUBSTANCE ABUSE COUNSELOR IN A MONTH. STATES SHE SEES WELDER APPRENTICE GAS, HAS NOT ACTUALLY SEEN A PHYSICIAN PCP: KADEEM PENG Allergies and Home Medications Allergies Coded Allergies: ANGEL Inhibitors (Verified Allergy, Unknown, Angioedema, 09/24/19) Uncoded Allergies: SULFA (Allergy, Unknown, 09/24/19) Home Medications Apixaban 5 Mg Tablet, 5 MG PO BID Prescribed by: IESHA DOLL on 02/24/19 1303 Apixaban 5 Mg Tablet, 5 MG PO BID TAKE 2 TABLETS BID X 7 DAYS, THEN 1 TABLET BID Prescribed by: NICOLAS ELLINGTON on 02/24/19 1404 Atorvastatin Calcium 40 Mg Tablet, 1 EACH PO HS, (Reported) Bupropion Hcl 300 Mg Tab.sr.24h, 300 MG PO HS, (Reported) Escitalopram Oxalate 10 Mg Tablet, 1 EACH PO DAILY, (Reported) Ezetimibe 10 Mg Tablet, 10 MG PO HS, (Reported) Metformin Hcl 500 Mg Tablet, 1 EACH PO BID WITH MEALS, (Reported) Metoprolol Succinate 50 Mg Tab.er.24h, 50 MG PO DAILY Prescribed by: NICOLAS ELLINGTON on 02/24/19 1404 Patient Home Medication List Home Medication List Reviewed: Yes Review of Systems Review of Systems Constitutional: see HPI; No chills, No diaphoresis, No dizziness, No fever; malaise, weakness EENTM: no symptoms reported Respiratory: no symptoms reported; No cough, No short of breath Cardiovascular: see HPI; No palpitations, No syncope Gastrointestinal: see HPI; No abdominal pain; nausea, vomiting Genitourinary: no symptoms reported Musculoskeletal: see HPI Skin: no symptoms reported Psychiatric/Neurological: No Symptoms Reported; Denies Headache, Denies Numbness, Denies Paresthesia, Denies Seizure, Denies Tingling, Denies Weakness Hematologic/Lymphatic: No Symptoms Reported Immunological/Allergic: no symptoms reported Past Upoyjeh-Mqfxqr-Nfstli Hx Patient Social History Alcohol Use: Rarely Uses Recreational Drug Use: No Smoking Status: Current Everyday Smoker (1 2 PPD) Type Used: Cigarettes Recent Foreign Travel: No Contact w/Someone Who Travel: No Recent Hopitalizations: No Immunizations Up To Date Date of Pneumonia Vaccine: Jun 21, 2012 Date of Influenza Vaccine: Jun 21, 2012 Past Medical History Surgeries: Yes (HYST/OVARIES INTACT;BACK SURGERY;R KNEE SURGERY;CARDIAC CATH-NO INTERVENTIO) Appendectomy, Gallbladder, Hysterectomy, Orthopedic Respiratory: Yes (CPAP AT HS) Sleep Apnea Currently Using CPAP: Yes Cardiac: Yes (NORMAL CARDIAC CATH >5 YRS AGO IN [facility]. 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, Menopausal Genitourinary: Yes (NOT ON DIALYSIS AT THIS TIME 02/18/19) Renal Failure Gastrointestinal: Yes (PANCREATITIS WITH CHOLELITHIASIS--S/P JAMEL) Gastroesophageal Reflux, Pancreatitis, Gall Bladder Disease Musculoskeletal: Yes (S/P RIGHT KNEE SURGERY AND BACK SURGERY; R TALUS FX-NO SURGERY) Degenerate Disk Disease, Rheumatoid Arthritis, Chronic Back Pain, Fractures Endocrine: Yes Hypothyroidsim, Diabetes, Non-Insulin dep HEENT: No Cancer: No Psychosocial: Yes Anxiety, Depression Integumentary: Yes (MRSA + NASAL SWAB) Blood Disorders: No Family Medical History CAD Under 55 Years Old STRESS TEST 04/27/19--NORMAL, WITH EF OF 64% HAD NORMAL CARDIAC CATH 5 YEARS AGO. Physical Exam Vital Signs Vital Signs - First Documented 09/24/19 09/24/19 19:30 19:45 Temp 37.0 Pulse 42 Resp 15 B/P (MAP) 105/82 (90) Pulse Ox 95 O2 Delivery Nasal Cannula O2 Flow Rate 2.00 FiO2 98 Capillary Refill : Height, Weight, BMI Height: 5'2.00" Weight: 145lbs. 0.0oz. 65.450358es; 26.5 BMI Method:Stated General Appearance: Other (MILD TO MODERATELY LETHARGIC, ACTIVELY VOMITING AND DRY HEAVING ON ARRIVAL. ) Eyes: Bilateral Eye PERRL, Bilateral Eye EOMI HEENT: Other (SMALL SCABBED ABRASION TO LEFT BROW AREA WITH SLIGHT SWELLING TO BROW. ) Neck: Full Range of Motion, Normal Inspection, Non Tender Respiratory: No Accessory Muscle Use, No Respiratory Distress, Rales (ON RIGHT > LEFT MID AND LOWER LUNG JUAREZ), Other (BILATERAL MID AND LOWER RIB/CHEST WALL TENDERNESS. SCABBED ABRASION TO LEFT UPPER ABDOMEN. ) Cardiovascular: No Edema, No Gallop, No JVD, No Murmur, Normal Peripheral Pulses, Bradycardia Gastrointestinal: Normal Bowel Sounds, No Organomegaly, No Pulsatile Mass, Non Tender, Soft, Tenderness (BILATERAL FLANK, BILATERAL UPPER QUADRANT TENDERNESS. ) Back: No Vertebral Tenderness, CVA Tenderness (L), CVA Tenderness (R) Extremity: Normal Capillary Refill, Normal Inspection, Normal Range of Motion, Non Tender, No Calf Tenderness, No Pedal Edema Neurologic/Psychiatric: Alert, Oriented x3, No Motor/Sensory Deficits, patient navigator II- XII Norm as Tested, Other (LETHARGIC) Skin: Warm/Dry, Pallor; No Rash; Other (ABRASIONS NOTED ABOVE. ) Focused Exam Sepsis Stage: Septic Shock Possible Source: Pulmonary Lactate Level Time of Focused Exam: 20:30 Respiratory: Decreased Breath Sounds, Rales Cardiovascular: No Edema, No Murmur, Bradycardia Capillary Refill: Greater Than 3 Seconds Skin: cool Lactic Acid Level Within 3hrs of presentation: Admin fluids, Admin ABX, Blood cultures prior to ABX's, Focus exam, Lactate level, Vasopressin therapy Progress/Results/Core Measures Suspected Sepsis SIRS Temperature: Pulse: Respiratory Rate: Blood Pressure / Mean: Results/Orders Lab Results Micro Results My Orders Orders - FABIOLA KAPLAN DO Iv Infusion <= First Hr Ed (09/24/19 ) Vaccine Administration Single (09/24/19 ) Medications Given in ED Vital Signs/I&O Capillary Refill : Point of Care Testing Finger Stick Blood Glucose: 167 Blood Glucose Action Taken: AND RN NOTIFIED Progress Note : Progress Note 2003--PT NOW STATES THAT SHE DID HIT HER HEAD WHEN SHE FELL A WEEK AGO--HAS SCABBED ABRASION TO LEFT BROW, COVERED WITH MAKEUP PT HAD GRADUAL DECLINE IN MENTATION--BECAME MORE SOMNOLENT, BP, HEART RATE AND O2 SATS GRADUALLY DECLINED. PT GIVEN AGGRESSIVE IV FLUID RESUSCITATION, WITHOUT IMPROVEMENT IN BP CENTRAL LINE IN LEFT GROIN PLACED AND PT INTUBATED BY WELDER APPRENTICE GAS Yajaira JOHNSON, AND PT PLACED ON VENTILATOR EXTERNAL PACEMAKER APPLIED, WITH CAPTURE, BUT NO IMPROVEMENT IN BP PT STARTED ON LEVOPHED DRIP, AND LATER DOPAMINE ADDED, AND A DOSE OF ATROPINE WAS GIVEN PT GIVEN BLOOD TRANSFUSIONS X 2 UNITS PT GIVEN ANTIBIOTICS WELL 0100--LOST CAPTURE OF EXTERNAL PACEMAKER 104--CALLED DR. GARCIA, HE ADVISES A DOSE OF ATROPINE, AND IF NO IMPROVEMENT, ADD DOPAMINE DRIP TO TRY TO OBTAIN CAPTURE. DOPAMINE DRIP DID RESULT IN CAPTURE. ECG Initial ECG Impression Date: Sep 24, 2019 Initial ECG Impression Time: 20:05 Initial ECG Rate: 41 Initial ECG Comparisson: Changed (LAST EKG WAS FROM 02/2019, WHEN PT WAS DX WITH ATRIAL FIB/RVR.; HOLTER MONITOR RHYTHM STRIP FROM 04/2019 SHOWS NSR.) Comment JUNCTIONAL RHYTHM. DIFFUSE FLATTENED T-WAVES. Diagnostic Imaging Comments CXR--ET TUBE, AND NG TUBE IN PLACE. NO PNEUMOTHORAX. PENDING RADIOLOGIST REVIEW CT HEAD/MAXILLOFACIALS/CERVICAL SPINE--NO ACUTE PROCESS, PER [facility] VIA FAX AT 2315 CT THORACIC AND LUMBAR SPINE--NO ACUTE PROCESS, SUB Q EDEMA IN THE BACK--PER [facility] VIA FAX AT 2330 CT CHEST/ABDOMEN/PELVIS--BILATERAL PULMONARY INFILTRATES, NO INTRA-ABDOMINAL SOLID ORGAN INJURY --PER [facility] VIA FAX AT 2330 2342--CALLED [facility] AND DISCUSSED RESULTS WITH RADIOLOGIST AT 2346--FRACTURES OF LEFT RIBS 9 AND 10, NO PNEUMOTHORAX. SHE ADVISES THAT INFILTRATES APPEAR TO BE INFECTIOUS AND NOT PULMONARY CONTUSIONS. ET TUBE, NG TUBE AND RIGHT FEMORAL CENTRAL LINE IN PLACE. SOME EDEMA / INFILTRATION IN UPPER ABDOMEN. NON-SPECIFIC FLUID AND AIR IN RIGHT LOWER ABDOMEN-LIKELY DUE TO FEMORAL LINE PLACEMENT Reviewed: Reviewed by Me Critical Care Note Critical Care Start Time: 19:28 Stop Time: 02:10 Progress SEE NURSING NOTES FOR DETAILS Departure Communication (Admissions) NO ICU BEDS AVAILABLE HERE 2355--CALLED [facility] 2359--SPOKE WITH DR. COLEMAN, PARKING TECHNICIAN, ACCEPTS PT FOR TRANSFER. NO ADDITIONAL RECOMMENDATIONS AT THIS TIME 0105--SPOKE WITH DR. GARCIA, REGARDING LOSS OF CAPTURE OF EXTERNAL PACEMAKER, RECOMMENDATIONS OF ATROPINE AND DOPAMINE NOTED 012--[facility] HERE FOR TRANSPORT. 021--[facility] HAVE LEFT THE ER WITH THE PT Communication (PCP) Impression Primary Impression: SHOCK--CARDIOGENIC AND SEPTIC Additional Impressions: SEVERE JUNCTIONAL BRADYCARDIA Acute respiratory failure BILATERAL PNEUMONIA S/P MULTIPLE RECENT FALLS LEFT RIB FRACTURES #9 AND #10 Severe anemia CHF (congestive heart failure) HX OF ATRIAL FIBRILLATION ON ELIQUIS Altered mental status Nausea and vomiting Acute renal failure Hypothermia Disposition: XFER SHT-TRM HOSP Condition: Critical Transfer Transfer Reason: Diversion Transfer Facility: [facility] Method of Transfer: Air ([facility]) Departure-Patient Inst. Referrals: NO,LOCAL PHYSICIAN (PCP) Primary Care Physician JENNYFER PENG (Family) Primary Care Physician FABIOLA KAPLAN DO Sep 24, 2019 19:53
[2019-09-24] MEDS ORDERED: SCOPOLAMINE 1.5 MG (TRANSDERM-SCOP) PATCH TD ONE (20:15)
[2019-09-24] MEDS ORDERED: TETANUS,DIPTH,PERTUSS P/F (BOOSTRIX) 0.5 ML VIAL IM ONE (20:15)
[2019-09-24 20:39] LABS: BASOPHILS # (AUTO) 0.1 10^3/uL (0.0-0.1); BASOPHILS % (AUTO) 0 % (0-10); EOSINOPHILS # (AUTO) 0.2 10^3/uL (0.0-0.3); EOSINOPHILS % (AUTO) 1 % (0-10); HEMATOCRIT 26 % (35-52); HEMOGLOBIN 7.4 G/DL (11.5-16.0); LYMPHOCYTES # (AUTO) 1.8 X 10^3 (1.0-4.0); LYMPHOCYTES % (AUTO) 8 % (12-44); MEAN CORPUSCULAR HEMOGLOBIN 23 PG (25-34); MEAN CORPUSCULAR HGB CONC 29 G/DL (32-36); MEAN CORPUSCULAR VOLUME 82 FL (80-99); MEAN PLATELET VOLUME 10.2 FL (7.4-10.4); MONOCYTES # (AUTO) 1.2 X 10^3 (0.0-1.0); MONOCYTES % (AUTO) 6 % (0-12); NEUTROPHILS # (AUTO) 17.6 X 10^3 (1.8-7.8); NEUTROPHILS % (AUTO) 85 % (42-75); PLATELET COUNT 391 10^3/uL (130-400); RED CELL DISTRIBUTION WIDTH 18.7 % (10.0-14.5); WHITE BLOOD COUNT 20.8 10^3/uL (4.3-11.0)
[2019-09-24 20:59] LABS: INR 1.4 (0.8-1.4)
[2019-09-24 21:02] LABS: ANISOCYTOSIS SLIGHT; EOSINOPHILS % (MANUAL) 1 %; HYPOCHROMASIA MODERATE; LYMPHOCYTES % (MANUAL) 3 %; MICROCYTOSIS SLIGHT; MONOCYTES % (MANUAL) 4 %; NEUTROPHILS % (MANUAL) 92 %; POLYCHROMASIA SLIGHT
[2019-09-24 21:09] LABS: ALANINE AMINOTRANSFERASE 50 U/L (0-55); ALBUMIN 3.4 GM/DL (3.2-4.5); ALKALINE PHOSPHATASE 215 U/L (40-136); AMYLASE 37 U/L (25-125); BILIRUBIN,TOTAL 0.3 MG/DL (0.1-1.0); BUN/CREATININE RATIO 15; CALCIUM 8.2 MG/DL (8.5-10.1); CARBON DIOXIDE 17 MMOL/L (21-32); CHLORIDE 110 MMOL/L (98-107); CREATINE KINASE 65 U/L (29-168); CREATININE SERUM 1.36 MG/DL (0.60-1.30); GFR ESTIMATED 38; GLUCOSE 163 MG/DL (70-105); LIPASE 16 U/L (8-78); MAGNESIUM 1.8 MG/DL (1.6-2.4); POTASSIUM 4.5 MMOL/L (3.6-5.0); SALICYLATE < 5.0 MG/DL (5.0-20.0); SODIUM 142 MMOL/L (135-145)
[2019-09-24 21:13] LABS: ACETAMINOPHEN < 10 UG/ML (10-30)
--- NOTE | 2019-09-24 21:15 | NUR ---
RENA JOHNSON IN ROOM TO INSERT CENTRAL LINE 2114 SUAREZ CATHETER INSERTED 2124 SUCCESSFUL INSERTION CHARTED 2144 INTUBATION 50MG ROCURONIUM GIVEN IV AT 2140, ETOMIDATE 20MG GIVEN IV AT 2142, 7.5 MM INSERTED BY RENA JOHNSON 21 CM AT LIP, COLOR CHANGE NOTED ON CO2 DETECTOR 2149 ON VENT PER RESPIRITORY THERAPY 2148 16 SUDANESE NG TOUBE INSERTED 2199 PLACED ON EXTERNAL PACEMAKER CAPTURED AT 10 PLACED ON 12mA [address] WITH AARON WHO HAS ASSUMED CARE OF THIS PATIENT FROM THIS RN
[2019-09-24 21:22] LABS: BILIRUBIN,URINE NEGATIVE (NEGATIVE); CLARITY,URINE CLEAR; COLOR,URINE YELLOW; GLUCOSE, URINE (UA) NEGATIVE (NEGATIVE); KETONES,URINE NEGATIVE (NEGATIVE); LEUKOCYTE ESTERASE ,URINE NEGATIVE (NEGATIVE); NITRITE,URINE NEGATIVE (NEGATIVE); PH,URINE 6.5 (5-9); PROTEIN,URINE TRACE (NEGATIVE)
[2019-09-24] MEDS ORDERED: PROCHLORPERAZINE 10 MG/2ML INJ (COMPAZINE) ONE (21:25)
[2019-09-24 21:28] LABS: CREATINE KINASE MB 1.1 NG/ML (<6.6)
[2019-09-24 21:42] LABS: AMPHETAMINE SCREEN, URINE NEGATIVE (NEGATIVE); BARBITURATE SCREEN URINE NEGATIVE (NEGATIVE); BENZODIAZEPINES SCREEN URINE POSITIVE (NEGATIVE); CANNABINOID SCREEN, URINE NEGATIVE (NEGATIVE); COCAINE SCREEN URINE NEGATIVE (NEGATIVE); METHADONE STAT NEGATIVE (NEGATIVE); METHAMPHETAMINE SCREEN URINE S NEGATIVE (NEGATIVE); OPIATE SCREEN URINE POSITIVE (NEGATIVE); OXYCODONE STAT NEGATIVE (NEGATIVE); PROPOXYPHENE STAT NEGATIVE (NEGATIVE); TRICYCLIC ANTIDEPRESSANTS SCRE NEGATIVE (NEGATIVE)
[2019-09-24] MEDS ORDERED: NS (IVPB) 250 ML ONE ×2 (21:48→23:59)
[2019-09-24] MEDS ORDERED: NOREPINEPHRINE 4 MG/4 ML (LEVOPHED) AMP IV ONE (21:48)
[2019-09-24] MEDS ORDERED: PROPOFOL DRIP (ICU) 100 ML IV ONE (21:49)
[2019-09-24 21:51] LABS: BACTERIA,URINE TRACE /HPF; WBC,URINE RARE /HPF
[2019-09-24 21:53] LABS: TSH (THYROID ANALYZER) 6.68 UIU/ML (0.35-4.94)
[2019-09-24] MEDS: NS IV 1000 ML 1,000 ML IV SCH (22:05)
[2019-09-24 22:10] LABS: ABG BASE EXCESS -9.7 MMOL/L (-2.5-2.5); ABG OXYGEN SATURATION 100 % (94-100); ABG PCO2 31 MMHG (35-45); ABG PO2 213 MMHG (79-93); ABG TCO2 16.6 MMOL/L (21.0-31.0)
[2019-09-24 22:12] LABS: ALLENS TEST POSITIVE; INSPIRED O2 30%; PATIENT TEMP 35.2; VENTILATOR YES
[2019-09-24 22:13] LABS: ABG PH 7.32 (7.37-7.43)
--- NOTE | 2019-09-24 22:15 | NUR ---
PATIENT TO CT ON TRANSPORT VENT, 20 MINUTES Addendum: 09/25/19 at 0420 by BILL GARNER RT Amended: Links added.
--- NOTE | 2019-09-24 22:19 | Procedure/Intervention Note ---
Procedures/Interventions Lumen: triple Position: femoral (R) Anesthesia: Lidocaine Volume Anesthetic (ccs): 2 Complications: none Post Position: sutured, good blood return Initially attempted central line placement right internal jugular ultrasound guided, was able to obtain access into the vein, but could not get the guidewire to thread beyond about 10-15 cm. This was tried twice before additional attempts were aborted. Decided to use the right femoral vein. The femoral vein was identified as the more medial larger compressible vascular structure, this was punctured, central line inserted all the way to the hub, good blood return. Date of ETT Placement: Sep 24, 2019 Time of ETT Placement: 21:45 Intubation Method: orotracheal Tube Size: 7.5 Medications: Etomidate, Rocuronium Positive End Tide CO2: Yes Breath Sounds after Intubation: bilateral-equal Intubation Complications: no complications Post Intubation Xray: Yes RENA JOHNSON APRN Sep 24, 2019 22:19
[2019-09-24 22:25] LABS: FREE T4 (FREE THYROXINE) 0.83 NG/DL (0.70-1.48)
[2019-09-24] MEDS ORDERED: methylPREDNISolone 125 MG (Solu-MEDROL) VIAL IV STA (22:30)
[2019-09-24] MEDS ORDERED: CEFEPIME INJECTION 2,000 MG in WATER (STERILE) FOR INJECTION 10 ML IV ONE (22:30)
[2019-09-24] MEDS ORDERED: FUROSEMIDE 40 MG/4 ML INJ (LASIX) IVP ONE (22:30)
[2019-09-24] MEDS ORDERED: NS IV 500 ML 500 ML ONE (23:19)
[2019-09-24 23:25] VITALS: BP 86/64
[2019-09-24 23:35] VITALS: BP 111/67
[2019-09-24 23:37] VITALS: BP 111/67
[2019-09-24] MEDS ORDERED: PANTOPRAZOLE 40 MG (PROTONIX) VIAL IV STA (23:44)
[2019-09-24 23:45] VITALS: BP 170/70
[2019-09-24] MEDS ORDERED: MAGNESIUM 1 GM/100 ML IVPB 100 ML IV ONE (23:45)
[2019-09-24] MEDS ORDERED: VANCOMYCIN 1000 MG/VIAL ONE (23:59)
[2019-09-25] MEDS ORDERED: VANCOMYCIN INJECTION 1,000 MG in NS (IVPB) 250 ML IV SCH ×2
[2019-09-25] MEDS ORDERED: SODIUM BICARB 8.4% 50 MEQ/50 ML VIAL IV ONE (00:30)
[2019-09-25 00:55] VITALS: BP 110/93
[2019-09-25] MEDS ORDERED: DOPamine DRIP 250 ML IV ONE (01:03)
[2019-09-25] MEDS ORDERED: ATROPINE INJECTION 1 MG/10 ML SYR (ABBOTT) IV ONE (01:30)
[2019-09-25] MEDS ORDERED: NS (IVPB) 250 ML ONE (01:37)
[2019-09-25] MEDS ORDERED: NOREPINEPHRINE 4 MG/4 ML (LEVOPHED) AMP IV ONE (01:38)
[2019-09-25 02:03] VITALS: BP 150/72
[2019-09-25] MEDS ORDERED: NS IV 1000 ML 1,000 ML ONE (03:18)
[2019-09-25] MEDS ORDERED: DOPamine DRIP 250 ML IV SCH (05:00)
--- NOTE | 2019-09-25 07:29 | Diagnostic Imaging Report ---
PROCEDURE: CT head and CT cervical spine without contrast. TECHNIQUE: Multiple contiguous axial images were obtained through the brain and cervical spine without the use of intravenous contrast. Sagittal and coronal reformations through the cervical spine were then performed. Auto Exposure Controls were utilized during the CT exam to meet ALARA standards for radiation dose reduction. INDICATION: Fall, altered mental status, post code COMPARISON: 04/03/2012 FINDINGS: Age-related volume loss. No intracranial hemorrhage. No intracranial mass, mass effect, midline shift, herniation, hydrocephalus, or extra-axial fluid collection. No CT evidence of an acute ischemic infarction. The bilateral ocular lenses are absent. Mucosal thickening and fluid within the ethmoid air cells, sphenoid sinuses, and nasal cavity. Nasal enteric catheter and endotracheal tube are partially visualized. The calvarium is intact. Straightening of normal cervical lordosis without significant anterolisthesis or retrolisthesis. Alignment of the atlantooccipital joint is well maintained. Besides endplate degenerative changes, vertebral body heights are well-maintained. Disc space height loss at C5/C6 and C6/C7 with associated osteophyte formation. No acute fracture or dislocation. No destructive osseous process. Scattered facet joint degenerative changes and uncovertebral joint hypertrophy. Endotracheal tube is present terminating just above the level of the nirali. Enteric catheter is present extending into the [id number]. Biapical pulmonary opacities are present, right greater than left. Significant vascular calcifications within the aortic arch. IMPRESSION: No acute intracranial abnormality with scattered degenerative changes and paranasal sinus disease. No acute osseous abnormality within the cervical spine with multilevel degenerative changes. Biapical pulmonary opacities which may relate to infiltrate versus contusion. Agree with preliminary interpretation. Dictated by: Dictated on workstation # [id number]
--- NOTE | 2019-09-25 07:37 | Diagnostic Imaging Report ---
PROCEDURE: CT thoracic and lumbar spine without contrast. TECHNIQUE: Multiple contiguous axial images were obtained through the thoracic and lumbar spine without the use of intravenous contrast. Sagittal and coronal reformations were then performed. INDICATION: Fall, post code, altered mental status COMPARISON: None available FINDINGS: Minimal apex left curvature of the lumbar spine. Posterior fusion of bilateral posterior pedicle screws is identified at L4 and L5 without evidence of hardware complication. No significant anterolisthesis or retrolisthesis. Besides endplate degenerative changes, particularly at L2/L3, vertebral body heights are otherwise well-maintained. Acute nondisplaced left 8th, 9th, 10th, and 11th rib fractures. Extensive reticular densities opacities are noted throughout the lungs bilaterally, greatest dependently. Small amount of gas is noted within the innominate vein, likely related to recent injection of contrast. IMPRESSION: Acute nondisplaced fracturing of the posterior/posterolateral left 8th, 9th, 10th, and 11th ribs. No acute osseous abnormality within the thoracic spine itself with scattered degenerative changes and postsurgical changes. See separately dictated CT of the chest, abdomen, and pelvis from the same date for findings within the body. Report was FAXED/called to [place] by ross at 7:37 am. LEONARDO Beard, was also notified. Dictated by: Dictated on workstation # [id number]
--- NOTE | 2019-09-25 07:39 | Diagnostic Imaging Report ---
INDICATION: Altered mental status. Comparison made with prior examination from 02/24/2019 FINDINGS: The ET and NG tubes are in satisfactory position. There is cardiomegaly and some venous congestion. There is no pleural effusion or pneumothorax. IMPRESSION: Cardiomegaly and some central pulmonary venous congestion. ET and NG tubes are in satisfactory position. Dictated by: Dictated on workstation # [id number]
--- NOTE | 2019-09-25 07:52 | Diagnostic Imaging Report ---
PROCEDURE: CT chest, abdomen, and pelvis without contrast. TECHNIQUE: Multiple contiguous axial images were obtained through the chest, abdomen, and pelvis without the use of intravenous contrast. Auto Exposure Controls were utilized during the CT exam to meet ALARA standards for radiation dose reduction. INDICATION: Fall, altered mental status COMPARISON: Imaging from same date and radiographs dated 02/24/2019. FINDINGS: Endotracheal tube is present terminating just above the level of the nirali. Enteric catheter is present extending into the body of the stomach. Vascular calcifications within the thoracic aorta and its branch vessels without aneurysmal dilatation of the thoracic aorta. The heart is enlarged. No pericardial effusion. Gas is noted within the innominate vein. No definite adenopathy in the chest, though evaluation is limited secondary to lack of intravenous contrast. Mild soft tissue swelling is noted right supraclavicular region. No pneumothorax. Extensive reticular and dense bilateral pulmonary opacities are noted dependently. No significant pleural effusion. The posterior/posterior lateral left 9th rib demonstrates 2 fractures. Acute fracturing of the posterior left 10th and 11th ribs also noted. Scattered degenerative changes within the thoracic spine. Cholecystectomy. The unenhanced liver, spleen, adrenal glands, and pancreas are unremarkable. Significant fat stranding is identified within the upper abdomen, including the central mesenteric and about the pancreas extending about the adrenal glands. The unenhanced kidneys are grossly unremarkable. Moderate vascular calcifications within the abdominal aorta and its branch vessels without aneurysmal dilatation of the abdominal aorta. Evans catheter within a decompressed urinary bladder. Gas is noted within the decompressed urinary bladder. Fat-containing left inguinal hernia. The uterus is not visualized, likely surgically absent. Significant mural thickening is noted involving the mid sigmoid colon. There is however no significant adjacent inflammatory stranding. Moderate amount of stool throughout the colon. Additional mural thickening of the ascending colon is present. No bowel obstruction or pneumatosis. Right femoral central venous catheter. No significant adenopathy, or free air. Small amount of free fluid is noted within the abdomen, particularly the right upper quadrant. This demonstrates a Hounsfield units of near 0. Post surgical changes within the lumbar spine. Scattered osseous degenerative changes without additional acute osseous abnormality. IMPRESSION: Acute nondisplaced posterior left-sided rib fractures as above without significant pneumothorax. Extensive bilateral pulmonary opacities dependently, possibly related to contusion versus atelectasis versus infiltrate. Recommend continued radiographic follow-up. Extensive fat stranding within the upper abdomen with associated small volume ascites. This could relate to peptic ulcer disease or pancreatitis. Portal venous congestion or mesenteric adenitis could appear similar. The fluid does demonstrate a low-density simple appearance. Scattered regions of mural thickening involving the colon, particularly the sigmoid colon. Consideration for underlying colitis. Soft tissue swelling within the right lower neck, possibly related to soft tissue injury versus attempts at prior central line. Recommend clinical correlation. Additional findings as described above. Report was faxed/called to [facility] by ross at 7:50 am. LEONARDO Beard, was also notified. Dictated by: Dictated on workstation # [id number]
== END 2019-09-25 02:00 | disposition short-term general hospital (02) ==
LOC: EDUNIT# 19:30 → ER 19:31
DX: A41.9 Sepsis, unspecified organism (principal); R65.21 Severe sepsis with septic shock; J96.00 Acute respiratory failure, unspecified whether with hypoxia or hypercapnia; R57.0 Cardiogenic shock; R00.1 Bradycardia, unspecified; J18.9 Pneumonia, unspecified organism; S22.42XA Multiple fractures of ribs, left side, initial encounter for closed fracture; D64.9 Anemia, unspecified; I11.0 Hypertensive heart disease with heart failure; I50.9 Heart failure, unspecified; I48.91 Unspecified atrial fibrillation; N17.9 Acute kidney failure, unspecified; R68.0 Hypothermia, not associated with low environmental temperature; R41.82 Altered mental status, unspecified; R29.6 Repeated falls; E11.9 Type 2 diabetes mellitus without complications; G47.30 Sleep apnea, unspecified; E78.00 Pure hypercholesterolemia, unspecified; K21.9 Gastro-esophageal reflux disease without esophagitis; M06.9 Rheumatoid arthritis, unspecified; E03.9 Hypothyroidism, unspecified; F41.9 Anxiety disorder, unspecified; F32.9 Major depressive disorder, single episode, unspecified; F17.210 Nicotine dependence, cigarettes, uncomplicated; Z99.89 Dependence on other enabling machines and devices; Z90.710 Acquired absence of both cervix and uterus; Z79.84 Long term (current) use of oral hypoglycemic drugs; Z88.2 Allergy status to sulfonamides; Z79.01 Long term (current) use of anticoagulants; W11.XXXA Fall on and from ladder, initial encounter
CPT/HCPCS: 36415; 36556; 51702; 70450; 71045; 71250; 72125; 72128; 72131; 74176; 80053; 80306; 80320; 80329; 81000; 82150; 82550; 82553; 82805; 82962; 83605; 83690; 83735; 83874; 83880; 84439; 84443; 84484; 85007; 85027; 85610; 85730; 86850; 86900; 86901; 86920; 87040; 87804; 90471; 90715; 93005; 93041; 94002; 96361; 96365; 96367; 96368; 96375; 96376; 99291; 99292

== ENCOUNTER → 2019-11-01 | Outpatient (CLI) | payer MEDICARE, OTHER ==
[~2019-11-01] MED LIST changes: +LISI1TAB29; -LISI1TAB6; +OMEP-280; -OMEP20CA13
[2019-11-01 11:45] LABS: BASOPHILS # (AUTO) 0.1 10^3/uL (0.0-0.1); BASOPHILS % (AUTO) 1 % (0-10); EOSINOPHILS # (AUTO) 0.2 10^3/uL (0.0-0.3); EOSINOPHILS % (AUTO) 2 % (0-10); HEMATOCRIT 32 % (35-52); HEMOGLOBIN 9.7 G/DL (11.5-16.0); LYMPHOCYTES # (AUTO) 1.1 X 10^3 (1.0-4.0); LYMPHOCYTES % (AUTO) 15 % (12-44); MEAN CORPUSCULAR HEMOGLOBIN 24 PG (25-34); MEAN CORPUSCULAR HGB CONC 30 G/DL (32-36); MEAN CORPUSCULAR VOLUME 80 FL (80-99); MEAN PLATELET VOLUME 10.1 FL (7.4-10.4); MONOCYTES # (AUTO) 0.5 X 10^3 (0.0-1.0); MONOCYTES % (AUTO) 7 % (0-12); NEUTROPHILS # (AUTO) 5.7 X 10^3 (1.8-7.8); NEUTROPHILS % (AUTO) 76 % (42-75); PLATELET COUNT 295 10^3/uL (130-400); RED CELL DISTRIBUTION WIDTH 18.3 % (10.0-14.5); WHITE BLOOD COUNT 7.5 10^3/uL (4.3-11.0)
[2019-11-01 11:56] LABS: BILIRUBIN,URINE NEGATIVE (NEGATIVE); CLARITY,URINE CLEAR; COLOR,URINE YELLOW; GLUCOSE, URINE (UA) NEGATIVE (NEGATIVE); KETONES,URINE NEGATIVE (NEGATIVE); LEUKOCYTE ESTERASE ,URINE NEGATIVE (NEGATIVE); NITRITE,URINE NEGATIVE (NEGATIVE); PROTEIN,URINE NEGATIVE (NEGATIVE)
[2019-11-01 12:02] LABS: ALBUMIN 4.2 GM/DL (3.2-4.5); BILIRUBIN,TOTAL 0.3 MG/DL (0.1-1.0); CREATININE SERUM 0.97 MG/DL (0.60-1.30); POTASSIUM 4.1 MMOL/L (3.6-5.0); TOTAL PROTEIN 7.5 GM/DL (6.4-8.2)
[2019-11-01 12:21] LABS: BACTERIA,URINE TRACE /HPF; RBC,URINE RARE /HPF; SQUAMOUS EPITHELIAL CELL,UR 0-2 /HPF; WBC,URINE RARE /HPF
--- NOTE | 2019-11-01 12:29 | Diagnostic Imaging Report ---
INDICATION: Pneumonia. Comparison made to prior examination 09/24/2019. PA and lateral views were obtained. FINDINGS: The heart size, mediastinal configuration, and pulmonary vascularity are within normal limits. There is no pleural effusion, pneumothorax, or pneumonia. The osseous structures are unremarkable. IMPRESSION: No acute cardiopulmonary abnormality. Dictated by: Dictated on workstation # [id number]
== END ==
LOC: LAB 11:26
PROVIDERS: ATTEND Registered Nurse
DX: E11.65 Type 2 diabetes mellitus with hyperglycemia (principal); E78.5 Hyperlipidemia, unspecified; N17.9 Acute kidney failure, unspecified; I48.91 Unspecified atrial fibrillation; R06.00 Dyspnea, unspecified; I95.9 Hypotension, unspecified; G47.33 Obstructive sleep apnea (adult) (pediatric); K59.00 Constipation, unspecified; M79.621 Pain in right upper arm; R07.9 Chest pain, unspecified; Z87.01 Personal history of pneumonia (recurrent)
CPT/HCPCS: 36415; 71046; 80053; 81000; 83036; 83880; 85025

== ENCOUNTER 2019-11-07 12:48 | Outpatient (RCR) | payer MEDICARE, OTHER ==
[2019-08-26 11:18] LABS: BASOPHILS # (AUTO) 0.1 10^3/uL (0.0-0.1); BASOPHILS % (AUTO) 1 % (0-10); EOSINOPHILS # (AUTO) 0.3 10^3/uL (0.0-0.3); EOSINOPHILS % (AUTO) 3 % (0-10); HEMATOCRIT 27 % (35-52); HEMOGLOBIN 8.2 G/DL (11.5-16.0); LYMPHOCYTES # (AUTO) 1.5 X 10^3 (1.0-4.0); LYMPHOCYTES % (AUTO) 18 % (12-44); MEAN CORPUSCULAR HEMOGLOBIN 27 PG (25-34); MEAN CORPUSCULAR HGB CONC 30 G/DL (32-36); MEAN CORPUSCULAR VOLUME 88 FL (80-99); MEAN PLATELET VOLUME 9.9 FL (7.4-10.4); MONOCYTES # (AUTO) 0.7 X 10^3 (0.0-1.0); MONOCYTES % (AUTO) 8 % (0-12); NEUTROPHILS # (AUTO) 6.1 X 10^3 (1.8-7.8); NEUTROPHILS % (AUTO) 71 % (42-75); PLATELET COUNT 352 10^3/uL (130-400); RED CELL DISTRIBUTION WIDTH 16.3 % (10.0-14.5); WHITE BLOOD COUNT 8.6 10^3/uL (4.3-11.0)
[2019-10-27 11:45] LABS: BASOPHILS # (AUTO) 0.1 10^3/uL (0.0-0.1); BASOPHILS % (AUTO) 1 % (0-10); EOSINOPHILS # (AUTO) 0.1 10^3/uL (0.0-0.3); EOSINOPHILS % (AUTO) 2 % (0-10); HEMATOCRIT 33 % (35-52); HEMOGLOBIN 10.1 G/DL (11.5-16.0); LYMPHOCYTES # (AUTO) 1.2 X 10^3 (1.0-4.0); LYMPHOCYTES % (AUTO) 15 % (12-44); MEAN CORPUSCULAR HEMOGLOBIN 24 PG (25-34); MEAN CORPUSCULAR HGB CONC 30 G/DL (32-36); MEAN CORPUSCULAR VOLUME 79 FL (80-99); MEAN PLATELET VOLUME 10.1 FL (7.4-10.4); MONOCYTES # (AUTO) 0.5 X 10^3 (0.0-1.0); MONOCYTES % (AUTO) 6 % (0-12); NEUTROPHILS # (AUTO) 5.8 X 10^3 (1.8-7.8); NEUTROPHILS % (AUTO) 76 % (42-75); PLATELET COUNT 300 10^3/uL (130-400); RED CELL DISTRIBUTION WIDTH 18.4 % (10.0-14.5); WHITE BLOOD COUNT 7.6 10^3/uL (4.3-11.0)
[2019-10-27 12:05] LABS: ALBUMIN 4.3 GM/DL (3.2-4.5); BILIRUBIN,TOTAL 0.3 MG/DL (0.1-1.0); CALCIUM 9.8 MG/DL (8.5-10.1); CREATININE SERUM 1.2 MG/DL (0.60-1.30); POTASSIUM 3.6 MMOL/L (3.6-5.0); TOTAL PROTEIN 7.5 GM/DL (6.4-8.2)
[~2019-11-07 12:48] MED LIST changes: +ACHYD1T; +FERRIC CARBOXYMALTOSE (CANCER) 750 MG in NS (IVPB) CANCER CENTER 250 ML IV SCH; -HYDR-3820; -OMEP-280; +OMEP20CA18
== END 2019-11-24 | disposition home or self-care (01) ==
LOC: ONC 12:48
PROVIDERS: ATTEND Internal Medicine Hematology & Oncology
DX: D50.9 Iron deficiency anemia, unspecified (principal); I07.1 Rheumatic tricuspid insufficiency; E11.22 Type 2 diabetes mellitus with diabetic chronic kidney disease; I13.10 Hypertensive heart and chronic kidney disease without heart failure, with stage 1 through stage 4 chronic kidney disease, or unspecified chronic kidney disease; E78.2 Mixed hyperlipidemia; G47.33 Obstructive sleep apnea (adult) (pediatric); N18.3 Chronic kidney disease, stage 3 (moderate); Z72.0 Tobacco use
CPT/HCPCS: 80053; 82607; 82668; 82728; 82746; 83540; 84155; 84165; 84238; 85025; 96365; 99213; 99214

== ENCOUNTER 2020-01-12 10:23 | Outpatient (RCR) | payer MEDICARE, OTHER ==
[2019-12-26 11:55] LABS: BASOPHILS # (AUTO) 0.1 10^3/uL (0.0-0.1); BASOPHILS % (AUTO) 1 % (0-10); EOSINOPHILS # (AUTO) 0.2 10^3/uL (0.0-0.3); EOSINOPHILS % (AUTO) 2 % (0-10); HEMATOCRIT 38 % (35-52); HEMOGLOBIN 12.7 G/DL (11.5-16.0); LYMPHOCYTES # (AUTO) 1.5 X 10^3 (1.0-4.0); LYMPHOCYTES % (AUTO) 20 % (12-44); MEAN CORPUSCULAR HEMOGLOBIN 30 PG (25-34); MEAN CORPUSCULAR HGB CONC 33 G/DL (32-36); MEAN CORPUSCULAR VOLUME 89 FL (80-99); MEAN PLATELET VOLUME 9.7 FL (7.4-10.4); MONOCYTES # (AUTO) 0.6 X 10^3 (0.0-1.0); MONOCYTES % (AUTO) 9 % (0-12); NEUTROPHILS # (AUTO) 5.2 X 10^3 (1.8-7.8); NEUTROPHILS % (AUTO) 68 % (42-75); PLATELET COUNT 243 10^3/uL (130-400); RED CELL DISTRIBUTION WIDTH 17.6 % (10.0-14.5); WHITE BLOOD COUNT 7.6 10^3/uL (4.3-11.0)
[2019-12-26 12:21] LABS: ALBUMIN 4.3 GM/DL (3.2-4.5); BILIRUBIN,TOTAL 0.3 MG/DL (0.1-1.0); CALCIUM 9.5 MG/DL (8.5-10.1); CREATININE SERUM 1.1 MG/DL (0.60-1.30); POTASSIUM 3.8 MMOL/L (3.6-5.0); TOTAL PROTEIN 7.5 GM/DL (6.4-8.2)
[~2020-01-12 10:23] MED LIST changes: -FERRIC CARBOXYMALTOSE (CANCER) 750 MG in NS (IVPB) CANCER CENTER 250 ML IV SCH
== END 2020-03-25 | disposition home or self-care (01) ==
LOC: ONC 10:23
PROVIDERS: ATTEND Internal Medicine Hematology & Oncology
DX: D50.9 Iron deficiency anemia, unspecified (principal); I07.1 Rheumatic tricuspid insufficiency; E11.22 Type 2 diabetes mellitus with diabetic chronic kidney disease; I13.10 Hypertensive heart and chronic kidney disease without heart failure, with stage 1 through stage 4 chronic kidney disease, or unspecified chronic kidney disease; E78.2 Mixed hyperlipidemia; G47.33 Obstructive sleep apnea (adult) (pediatric); N18.3 Chronic kidney disease, stage 3 (moderate); Z72.0 Tobacco use
CPT/HCPCS: 80053; 83540; 83550; 85025; 99213

== ENCOUNTER → 2020-01-27 | Outpatient (CLI) | payer MEDICARE, OTHER ==
--- NOTE | 2020-01-27 13:57 | Diagnostic Imaging Report ---
EXAM: Digital mammogram, bilateral screening COMPARISON: There are no prior studies available for comparison. There are no current complaints. FINDINGS: There are scattered fibroglandular densities in both breasts which could obscure a lesion. There is no primary or secondary sign of malignancy noted. IMPRESSION: There is no evidence for malignancy. ACR category 1. ACR BI-RADS Category 1: Negative. Result letter will be mailed to the patient. Note: At least 10% of breast cancer is not imaged by mammography. Dictated by: Dictated on workstation # [id number]
== END ==
LOC: RAD 10:23
PROVIDERS: ATTEND Internal Medicine Hematology & Oncology
DX: Z12.31 Encounter for screening mammogram for malignant neoplasm of breast (principal)
CPT/HCPCS: 77063; 77067

== ENCOUNTER → 2020-04-10 | Outpatient (CLI) | payer MEDICARE, OTHER ==
[2020-04-10 11:58] LABS: BASOPHILS % (AUTO) 1 % (0-10); EOSINOPHILS # (AUTO) 0.1 10^3/uL (0.0-0.3); EOSINOPHILS % (AUTO) 1 % (0-10); HEMATOCRIT 36 % (35-52); HEMOGLOBIN 11.8 G/DL (11.5-16.0); LYMPHOCYTES # (AUTO) 1.2 X 10^3 (1.0-4.0); LYMPHOCYTES % (AUTO) 14 % (12-44); MEAN CORPUSCULAR HEMOGLOBIN 29 PG (25-34); MEAN CORPUSCULAR HGB CONC 32 G/DL (32-36); MEAN CORPUSCULAR VOLUME 90 FL (80-99); MEAN PLATELET VOLUME 10.2 FL (7.4-10.4); MONOCYTES # (AUTO) 0.6 X 10^3 (0.0-1.0); MONOCYTES % (AUTO) 7 % (0-12); NEUTROPHILS # (AUTO) 6.4 X 10^3 (1.8-7.8); NEUTROPHILS % (AUTO) 78 % (42-75); PLATELET COUNT 302 10^3/uL (130-400); RED CELL DISTRIBUTION WIDTH 13.6 % (10.0-14.5); WHITE BLOOD COUNT 8.3 10^3/uL (4.3-11.0)
[2020-04-10 12:22] LABS: ALBUMIN 3.9 GM/DL (3.2-4.5); BILIRUBIN,TOTAL 0.3 MG/DL (0.1-1.0); CALCIUM 9.3 MG/DL (8.5-10.1); CREATININE SERUM 0.98 MG/DL (0.60-1.30); POTASSIUM 4.3 MMOL/L (3.6-5.0); TOTAL PROTEIN 7.2 GM/DL (6.4-8.2)
== END ==
LOC: LAB 11:34
PROVIDERS: ATTEND Registered Nurse
DX: E11.65 Type 2 diabetes mellitus with hyperglycemia (principal); E55.9 Vitamin D deficiency, unspecified; I12.9 Hypertensive chronic kidney disease with stage 1 through stage 4 chronic kidney disease, or unspecified chronic kidney disease; D63.1 Anemia in chronic kidney disease; N18.9 Chronic kidney disease, unspecified; E03.9 Hypothyroidism, unspecified; G47.33 Obstructive sleep apnea (adult) (pediatric); F41.8 Other specified anxiety disorders; M06.9 Rheumatoid arthritis, unspecified; R52 Pain, unspecified
CPT/HCPCS: 36415; 80053; 80061; 82306; 83036; 84443; 85025

== ENCOUNTER → 2020-04-17 | Outpatient (CLI) | payer MEDICARE, OTHER ==
--- NOTE | 2020-04-17 10:56 | Diagnostic Imaging Report ---
PROCEDURE: US Hepatic (Liver). TECHNIQUE: Multiple real-time grayscale images were obtained over the right upper quadrant in various projections. INDICATION: Elevated liver enzyme. The liver parenchyma appears normal. Bile ducts are not dilated. Common duct measures 5 mm. Gallbladder is absent. Doppler sampling shows normal flow in the portal vein. Aorta and vena cava appear normal. The pancreas is obscured due to bowel gas. The right kidney appears normal measuring 9.2 x 5 x 5 cm. No hydronephrosis. No calculi. There does appear to be a trace of fluid in the biliary fossa. IMPRESSION: 1. Trace of fluid noted in the biliary fossa. No other abnormalities demonstrated. Dictated by: Dictated on workstation # [id number]
== END ==
LOC: RAD 09:00
PROVIDERS: ATTEND Registered Nurse
DX: R74.8 Abnormal levels of other serum enzymes (principal); Z90.49 Acquired absence of other specified parts of digestive tract
CPT/HCPCS: 76705

== ENCOUNTER 2020-04-19 14:18 | Outpatient (RCR) | payer MEDICARE, OTHER ==
[2020-04-10 11:56] LABS: BASOPHILS % (AUTO) 1 % (0-10); EOSINOPHILS # (AUTO) 0.1 10^3/uL (0.0-0.3); EOSINOPHILS % (AUTO) 1 % (0-10); HEMATOCRIT 36 % (35-52); HEMOGLOBIN 11.8 G/DL (11.5-16.0); LYMPHOCYTES # (AUTO) 1.2 X 10^3 (1.0-4.0); LYMPHOCYTES % (AUTO) 14 % (12-44); MEAN CORPUSCULAR HEMOGLOBIN 29 PG (25-34); MEAN CORPUSCULAR HGB CONC 32 G/DL (32-36); MEAN CORPUSCULAR VOLUME 90 FL (80-99); MEAN PLATELET VOLUME 10.2 FL (7.4-10.4); MONOCYTES # (AUTO) 0.6 X 10^3 (0.0-1.0); MONOCYTES % (AUTO) 7 % (0-12); NEUTROPHILS # (AUTO) 6.4 X 10^3 (1.8-7.8); NEUTROPHILS % (AUTO) 78 % (42-75); PLATELET COUNT 302 10^3/uL (130-400); WHITE BLOOD COUNT 8.3 10^3/uL (4.3-11.0)
[2020-04-10 12:20] LABS: ALBUMIN 3.9 GM/DL (3.2-4.5); BILIRUBIN,TOTAL 0.3 MG/DL (0.1-1.0); CALCIUM 9.4 MG/DL (8.5-10.1); CREATININE SERUM 0.98 MG/DL (0.60-1.30); POTASSIUM 4.3 MMOL/L (3.6-5.0); TOTAL PROTEIN 7.2 GM/DL (6.4-8.2)
== END 2020-06-15 08:06 | disposition home or self-care (01) ==
LOC: ONC 14:18
PROVIDERS: ATTEND Internal Medicine Hematology & Oncology
DX: D64.9 Anemia, unspecified (principal); I07.1 Rheumatic tricuspid insufficiency; E11.22 Type 2 diabetes mellitus with diabetic chronic kidney disease; I13.10 Hypertensive heart and chronic kidney disease without heart failure, with stage 1 through stage 4 chronic kidney disease, or unspecified chronic kidney disease; E78.2 Mixed hyperlipidemia; G47.33 Obstructive sleep apnea (adult) (pediatric); Z72.0 Tobacco use
CPT/HCPCS: 80053; 82728; 83540; 85025; 99213

== ENCOUNTER 2020-08-28 18:31 | Outpatient (RCR) | payer MEDICARE, OTHER ==
[~2020-08-28 18:31] MED LIST changes: +AMLO-250; -AMLO5TAB9
[2020-08-28 20:56] LABS: HEMATOCRIT 37 % (35-52); HEMOGLOBIN 11.9 G/DL (11.5-16.0); MEAN CORPUSCULAR HEMOGLOBIN 29 PG (25-34); MEAN CORPUSCULAR HGB CONC 32 G/DL (32-36); MEAN CORPUSCULAR VOLUME 91 FL (80-99); WHITE BLOOD COUNT 4.7 10^3/uL (4.3-11.0)
[2020-08-28 20:57] LABS: BASOPHILS # (AUTO) 0.1 10^3/uL (0.0-0.1); BASOPHILS % (AUTO) 2 % (0-10); EOSINOPHILS % (AUTO) 1 % (0-10); LYMPHOCYTES % (AUTO) 22 % (12-44); MEAN PLATELET VOLUME 11.4 FL (7.4-10.4); MONOCYTES # (AUTO) 0.5 X 10^3 (0.0-1.0); MONOCYTES % (AUTO) 11 % (0-12); NEUTROPHILS % (AUTO) 64 % (42-75); PLATELET COUNT 266 10^3/uL (130-400)
[2020-08-28 21:38] LABS: ALBUMIN 4.1 GM/DL (3.2-4.5); BILIRUBIN,TOTAL 0.2 MG/DL (0.1-1.0); CALCIUM 9.8 MG/DL (8.5-10.1); CREATININE SERUM 0.92 MG/DL (0.60-1.30); TOTAL PROTEIN 7.4 GM/DL (6.4-8.2)
== END 2020-11-26 | disposition home or self-care (01) ==
LOC: LAB FS 18:31 → EDSTATUS 08-29 11:47
PROVIDERS: ATTEND Internal Medicine Infectious Disease
DX: I33.0 Acute and subacute infective endocarditis (principal)
CPT/HCPCS: 36415; 80053; 82550; 85025

== ENCOUNTER → 2020-09-03 | Outpatient (CLI) | payer MEDICARE, OTHER ==
[2020-09-03 18:22] LABS: HEMOGLOBIN 11.2 G/DL (11.5-16.0); MEAN CORPUSCULAR HEMOGLOBIN 29 PG (25-34); WHITE BLOOD COUNT 4.6 10^3/uL (4.3-11.0)
[2020-09-03 18:23] LABS: BASOPHILS % (AUTO) 0 % (0-10); EOSINOPHILS % (AUTO) 0 % (0-10); ERYTHROCYTE SEDIMENTATION RATE 70 MM/HR (0-30); HEMATOCRIT 35 % (35-52); LYMPHOCYTES # (AUTO) 0.9 X 10^3 (1.0-4.0); LYMPHOCYTES % (AUTO) 19 % (12-44); MEAN CORPUSCULAR HGB CONC 32 G/DL (32-36); MEAN CORPUSCULAR VOLUME 89 FL (80-99); MEAN PLATELET VOLUME 11.5 FL (7.4-10.4); MONOCYTES # (AUTO) 0.3 X 10^3 (0.0-1.0); MONOCYTES % (AUTO) 7 % (0-12); NEUTROPHILS # (AUTO) 3.3 X 10^3 (1.8-7.8); NEUTROPHILS % (AUTO) 73 % (42-75); PLATELET COUNT 190 10^3/uL (130-400)
[2020-09-03 20:03] LABS: BUN/CREATININE RATIO 14; CARBON DIOXIDE 24 MMOL/L (21-32); CHLORIDE 100 MMOL/L (98-107); CREATININE SERUM 0.72 MG/DL (0.60-1.30); GFR ESTIMATED > 60; GLUCOSE 121 MG/DL (70-105); POTASSIUM 4.1 MMOL/L (3.6-5.0); SODIUM 138 MMOL/L (135-145)
[2020-09-03 20:04] LABS: ALANINE AMINOTRANSFERASE 14 U/L (0-55); ALKALINE PHOSPHATASE 98 U/L (40-136); BILIRUBIN,TOTAL 0.2 MG/DL (0.1-1.0); TOTAL PROTEIN 7.4 GM/DL (6.4-8.2)
[2020-09-04 15:19] LABS: PHOSPHORUS 2.3 MG/DL (2.3-4.7)
[2020-09-04 16:29] LABS: CREATINE KINASE 31 U/L (29-168)
== END ==
LOC: LAB FS 16:31
PROVIDERS: ATTEND Internal Medicine Infectious Disease
DX: Z12.9 Encounter for screening for malignant neoplasm, site unspecified (principal); I12.9 Hypertensive chronic kidney disease with stage 1 through stage 4 chronic kidney disease, or unspecified chronic kidney disease; N18.31 Chronic kidney disease, stage 3a; D50.8 Other iron deficiency anemias; Z79.2 Long term (current) use of antibiotics; Z87.01 Personal history of pneumonia (recurrent)
CPT/HCPCS: 36415; 80053; 80069; 82306; 82550; 82746; 84100; 85025; 85652; 86141

== ENCOUNTER → 2020-09-11 | Outpatient (CLI) | payer MEDICARE, OTHER ==
[2020-09-11 15:53] LABS: BASOPHILS % (AUTO) 1 % (0-10); EOSINOPHILS # (AUTO) 0.1 10^3/uL (0.0-0.3); EOSINOPHILS % (AUTO) 1 % (0-10); HEMATOCRIT 32 % (35-52); HEMOGLOBIN 10.5 G/DL (11.5-16.0); LYMPHOCYTES # (AUTO) 1.3 X 10^3 (1.0-4.0); LYMPHOCYTES % (AUTO) 15 % (12-44); MEAN CORPUSCULAR HEMOGLOBIN 29 PG (25-34); MEAN CORPUSCULAR HGB CONC 33 G/DL (32-36); MEAN CORPUSCULAR VOLUME 88 FL (80-99); MEAN PLATELET VOLUME 10.4 FL (7.4-10.4); MONOCYTES # (AUTO) 0.5 X 10^3 (0.0-1.0); MONOCYTES % (AUTO) 6 % (0-12); NEUTROPHILS # (AUTO) 6.6 X 10^3 (1.8-7.8); NEUTROPHILS % (AUTO) 75 % (42-75); PLATELET COUNT 460 10^3/uL (130-400); WHITE BLOOD COUNT 8.8 10^3/uL (4.3-11.0)
[2020-09-11 15:54] LABS: BASOPHILS # (AUTO) 0.1 10^3/uL (0.0-0.1)
[2020-09-11 15:56] LABS: BUN/CREATININE RATIO 9; CARBON DIOXIDE 25 MMOL/L (21-32); CHLORIDE 103 MMOL/L (98-107); GFR ESTIMATED > 60; POTASSIUM 3.5 MMOL/L (3.6-5.0); SODIUM 140 MMOL/L (135-145)
[2020-09-11 15:57] LABS: ALANINE AMINOTRANSFERASE 19 U/L (0-55); ALBUMIN 3.3 GM/DL (3.2-4.5); ALKALINE PHOSPHATASE 90 U/L (40-136); BILIRUBIN,TOTAL 0.2 MG/DL (0.1-1.0); CALCIUM 9.1 MG/DL (8.5-10.1); GLUCOSE 69 MG/DL (70-105); TOTAL PROTEIN 6.9 GM/DL (6.4-8.2)
[2020-09-11 16:20] LABS: ERYTHROCYTE SEDIMENTATION RATE 75 MM/HR (0-30)
[2020-09-12 15:25] LABS: CREATINE KINASE 58 U/L (29-168)
== END ==
LOC: LAB FS 15:10
PROVIDERS: ATTEND Internal Medicine Infectious Disease
DX: E11.22 Type 2 diabetes mellitus with diabetic chronic kidney disease (principal); I05.8 Other rheumatic mitral valve diseases; Z79.2 Long term (current) use of antibiotics
CPT/HCPCS: 36415; 80053; 82550; 85025; 85652